=== PATIENT | male | born 1985 | race African-American/Black ===

== ENCOUNTER 2017-05-24 08:44 | Inpatient (IN) | payer OTHER ==
[2017-05-24 09:14] VITALS: BMI 33.7
--- NOTE | 2017-05-24 09:22 | PDOC ---
History of Present Illness - General Chief Complaint: Overdose Stated Complaint: OVERDOSE Time Seen by Provider: 05/24/17 08:54 History Source: Patient Exam Limitations: No Limitations - History of Present Illness Initial Comments: 05/24/17 09:01 The patient is a 31M with a PMH of asthma and "fluid in his lungs" who was BIBA after being found unresponsive in the passenger seat of a car. He was found to have pinpoint pupils, a BG of 161, was given 2mg of Narcan and became responsive. He said the last time this happened was February 08, 2017 and he was taken to [facility] He denies any fever, chills, CP, SOB, nausea, vomiting. Past History - Past Medical History Allergies/Adverse Reactions: Allergies Allergy/AdvReac Type Severity Reaction Status Date / Time No Known Allergies Allergy Verified 05/24/17 08:57 Home Medications: Ambulatory Orders NK [No Known Home Medication] 05/24/17 Review of Systems - Review of Systems Able to Perform ROS?: Yes Is the patient limited Sinhala proficient: No Constitutional: No: Chills, Fever HEENTM: No: Blurred Vision, Recent change in vision Respiratory: Yes: Cough. No: Shortness of Breath Cardiac (ROS): No: Chest Pain, Palpitations ABD/GI: No: Nausea, Vomiting Neurological: No: Headache, Numbness, Tingling, Weakness *Physical Exam - Physical Exam Comments: 05/24/17 09:45 GENERAL: Well developed, well nourished. Awake and alert. Diaphoretic, in mild distress. HEENT: Normocephalic, atraumatic. Hearing grossly normal. Moist mucous membranes. PERRLA, EOMI. No conjunctival pallor. Sclera are non-icteric. Oropharynx is clear. CARDIOVASCULAR: Regular rate and rhythm. No murmurs, rubs, or gallops. Distal pulses are 2+ and symmetric. PULMONARY: No evidence of respiratory distress. Lungs have crackles in b/l lung singh. No wheezing, rales or rhonchi. ABDOMINAL: Soft. Non-tender. Non-distended. No rebound or guarding. No organomegaly. Normoactive bowel sounds. GENITOURINARY: No CVA tenderness bilaterally. MUSCULOSKELETAL: Normal range of motion at all joints. No bony deformities or tenderness. EXTREMITIES: No cyanosis. No clubbing. No edema. No calf tenderness. SKIN: Warm and dry. Normal capillary refill. No rashes. No jaundice. NEUROLOGICAL: Alert, awake, appropriate. Cranial nerves 2-12 intact. No motor deficits in the in face, upper extremities and lower extremities. Toes are down- going bilaterally. Normal speech. Gait is unobserved. PSYCHIATRIC: Cooperative. Good eye contact. Appropriate mood and affect. Heart Score/ECG Review #1 General ECG Interpretation: Sinus Rhythm, Normal Rate, Normal Intervals, No acute ischemic changes 05/24/17 10:11 Questionable RBBB in V1 and V2 T wave inversions in V4 and V5 Rate 87 QRS 92 QTc 428 ED Treatment Course - LABORATORY CBC & Chemistry Diagram: 05/25/17 06:00 05/24/17 09:15 - RADIOLOGY Radiology Studies Ordered: Category Date Time Status CHEST X-RAY PORTABLE* [RAD] Stat Radiology 05/24/17 08:58 Ordered Medical Decision Making - Medical Decision Making 05/24/17 09:23 The patient is a 31M with a PMH of asthma, heroine and crack abuse who presented after being found unresponsive and given narcan. He coughed up blood while in the room and his O2 sat increased to 100. He then began to de-sat to mid-80's again. He will be put on high flow O2. Pending labs and imaging. Will reassess when labs/imaging return. 05/24/17 10:06 Labs WNL. ODALIS with Cr of 1.4. ABG shows mild hypoxemia. CXR read: No pneumothorax, or pleural effusion seen. Accentuated pulmonary vasculature. There is suggestion of the right-sided Raul's B lines. Pulmonary consolidation with air bronchograms is noted in the medial aspect of the left upper lung zone at the level of aortic arch, superior to the left hilum concerning for pneumonia, or pulmonary edema. 05/24/17 10:33 Patient is satting well on 50L/min high flow NC on 40% FiO2. Admitted to ICU. *DC/Admit/Observation/Transfer Diagnosis at time of Disposition: Heroin overdose Qualifiers: Encounter type: initial encounter Injury intent: accidental or unintentional Qualified Code(s): T40.1X1A - Poisoning by heroin, accidental (unintentional), initial encounter - Discharge Dispostion Condition at time of disposition: Stable Admit: Yes - Referrals - Patient Instructions - Post Discharge Activity
[2017-05-24 09:27] LABS: BASO % 0.4 % (0-2.0); EOS % 1.2 % (0-4.5); HEMATOCRIT 46.6 % (35.4-49); HEMOGLOBIN 14.9 GM/dL (11.7-16.9); LYMPH % 23.2 % (8-40); MCH 27.8 pg (25.7-33.7); MEAN CELL VOLUME 86.8 fl (80-96); MONO % 5.7 % (3.8-10.2); NEUT % 69.5 % (42.8-82.8); PLATELET COUNT 253 K/MM3 (134-434); RBC 5.37 M/mm3 (4.00-5.60); RDW 13.2 % (11.9-15.9)
[2017-05-24 09:42] LABS: ARTERIAL BLD GAS O2 SATURATION 88.4 % (90-98.9); ARTERIAL BLOOD GAS BASE EXCESS -2.9 meq/l (-2-2); ARTERIAL BLOOD GAS PCO2 44.6 mmHg (35-45); ARTERIAL BLOOD GAS PO2 62.4 mmHg (80-100); ARTERIAL BLOOD GAS pH 7.33 (7.35-7.45)
[2017-05-24 09:45] LABS: ALLENS TEST POSITIVE
--- NOTE | 2017-05-24 09:45 | PDOC ---
Attending Attestation - Resident Resident Name: LamroberdeionGa - ED Attending Attestation I have performed the following: I have examined & evaluated the patient, The case was reviewed & discussed with the resident, I agree w/resident's findings & plan, Exceptions are as noted - HPI HPI: 05/24/17 09:38 31-year-old male with history of polysubstance abuse and hospitalizations in the past last episode February with respiratory complications after opiates presents now brought in by EMS after found unresponsive with RR 8 after inhaling heroine this morning. Patient was given Narcan in the field with improved respiratory rate and alertness. No injuries, patient feels subjective shortness of breath with fluid in his lungs but better than he felt in February. - Physicial Exam PE: 05/24/17 09:39 Respiratory rate improved, O2 sat ranges from 84-100% on nonrebreather Patient is alert, speaking full sentences, cooperative. Occasional gross hemoptysis. Bilateral crackles at the bases No trauma - Critical Care Time Total Critical Care Time: 70 Critical Care Statement: The care of this patient involved high complexity decision making to prevent further life threatening deterioration of the patient 's condition and/or to evaluate & treat vital organ system(s) failure or risk of failure. - Medical Decision Making 05/24/17 09:40 Patient seen and evaluated with the resident. I agree with the overall evaluation, assessment, and management with the following summary of visit: 31-year-old male presents with acute hypoxic respiratory distress following opiate inhalation and Narcan resuscitation. Active hemoptysis concerning for acute lung injury. NRB with only slightly improved O2. Placed on high flow O2 with improved sats to 90s, able to expectorate still with gross hemoptysis, no clots labs, cxr, ekg will need ct chest if can tolerate additional narcan as needed admission, likely ICU. 05/24/17 10:55 Pt markedly improved on high flow, O2 95%, remains alert with normal RR. ABG noted. Labs wnl, no leukocytosis. Cr 1.4, unknown baseline. CXR with consolidation but given clinical picture, more consistent with fluid than infection. Awaiting CT chest then ICU admission. Heart Score/ECG Review #1 ECG reviewed & interpreted by me at: 08:55 General ECG Interpretation: Sinus Rhythm, Normal Rate (87), Normal Intervals, No acute ischemic changes (R V1V2, ? R heart strain. inferior and lateral TWI, no acute ST changes)
[2017-05-24 09:46] LABS: ALBUMIN 3.5 g/dl (3.4-5.0); ANION GAP 10 (8-16); BLOOD UREA NITROGEN 17 mg/dL (7-18); CALCIUM 8.5 mg/dL (8.5-10.1); CHLORIDE 104 mmol/L (98-107); CO2 23 mmol/L (21-32); CREATININE 1.4 mg/dL (0.7-1.3); GLUCOSE,RANDOM 146 mg/dL (74-106); POTASSIUM 3.7 mmol/L (3.5-5.1); SGOT/AST 17 U/L (15-37); SGPT/ALT 29 U/L (12-78); SODIUM 137 mmol/L (136-145)
[2017-05-24 09:49] LABS: ALK PHOS 100 U/L (45-117); BILIRUBIN,TOTAL 0.4 mg/dL (0.2-1.0); TOT PROT 7.1 g/dl (6.4-8.2)
[2017-05-24 09:50] LABS: SALICYLATE < 4.0 mg/dl (0.0-30.0)
[2017-05-24 09:57] LABS: INR 0.97 (0.82-1.09)
[2017-05-24 10:00] LABS: ACTIVATED PTT 26.6 SECONDS (26.9-34.4)
[2017-05-24 10:20] LABS: ACETAMINOPHEN < 10 ug/ml (10.0-30.0)
--- NOTE | 2017-05-24 12:40 | HP ---
PCP: Pt doesn't remember the name. HISTORY OF PRESENT ILLNESS: Patient is a 31 year old male was found unresponsive in his friends car after he inhaled a bag heroine this morning. 911 was immediately called. EMS found his respiratory rate to be 8 and had pin point pupils. 2mg of Narcane was given. En route to the hospital, he regained his consciouness and then he started having hemoptysis. As per the patient, he woke up at 7 am this morning, inhaled a bag of heroine and was about to go to work with his friend and he felt very weak and later lost consciousness. He had a similar episode where he overdosed and was hospitalized at [facility] for 4 days. He also mentions he had hemoptysis and "fluids in the lungs" that admission. Patient also mentions that since few days, he has had runny nose, sore throat, subjective fever. However, he didn't take medication and was still working in a moving company. Bowel/Bladder habit normal. Sleep/Appetite prior to illness is normal. ER course was notable for: (1) Creatinine 1.4 (baseline unknown) (2) EKG: Non specific T wave abnormality in lead V4-V6 (3) High flow oxygen Recent Travel: None PAST MEDICAL HISTORY: Asthma (never been intubated) PAST SURGICAL HISTORY: unknown Social History: Smokin cig/day since age 11 years. Alcohol: 1 pint of alcohol since age 11 years. Drugs: Inhales Heroine and Cocaine. Denies IV drug use. Last intake of cocaine was last week. Family History: Non contributory Allergies No Known Allergies Allergy (Verified 05/24/17 08:57) HOME MEDICATIONS: Home Medications Medication Instructions Recorded NK [No Known Home Medication] 05/24/17 REVIEW OF SYSTEMS CONSTITUTIONAL: Present: generalized weakness Absent: fever, chills, diaphoresis, malaise, loss of appetite, weight change HEENT: Absent: rhinorrhea, nasal congestion, throat pain, throat swelling, difficulty swallowing, mouth swelling, ear pain, eye pain, visual changes CARDIOVASCULAR: Absent: chest pain, syncope, palpitations, irregular heart rate, lightheadedness , peripheral edema RESPIRATORY: Absent: cough, shortness of breath, dyspnea with exertion, orthopnea, wheezing, stridor, hemoptysis GASTROINTESTINAL: Absent: abdominal pain, abdominal distension, nausea, vomiting, diarrhea, constipation, melena, hematochezia GENITOURINARY: Absent: dysuria, frequency, urgency, hesitancy, hematuria, flank pain, genital pain MUSCULOSKELETAL: Absent: myalgia, arthralgia, joint swelling, back pain, neck pain SKIN: Absent: rash, itching, pallor HEMATOLOGIC/IMMUNOLOGIC: Absent: easy bleeding, easy bruising, lymphadenopathy, frequent infections ENDOCRINE: Absent: unexplained weight gain, unexplained weight loss, heat intolerance, cold intolerance NEUROLOGIC: Absent: headache, focal weakness or paresthesias, dizziness, unsteady gait, seizure, mental status changes, bladder or bowel incontinence PSYCHIATRIC: Absent: anxiety, depression, suicidal or homicidal ideation, hallucinations. PHYSICAL EXAMINATION Vital Signs - 24 hr 05/24/17 05/24/17 05/24/17 08:57 09:10 09:39 Temperature 98.0 F Pulse Rate 78 80 Pulse Rate [ 80 81 Left Apical] Respiratory 10 L 12 12 Rate Blood Pressure 91/56 Blood Pressure 108/67 106/62 [Right Arm] O2 Sat by Pulse 78 L 88 L 99 Oximetry (%) 05/24/17 05/24/17 05/24/17 09:45 10:15 10:45 Temperature Pulse Rate 89 Pulse Rate [ 90 83 Left Apical] Respiratory 10 L 14 Rate Blood Pressure Blood Pressure 112/71 109/61 [Right Arm] O2 Sat by Pulse 94 L 93 L 96 Oximetry (%) 05/24/17 11:33 Temperature Pulse Rate Pulse Rate [ Left Apical] Respiratory Rate Blood Pressure Blood Pressure [Right Arm] O2 Sat by Pulse 95 Oximetry (%) GENERAL: Patient is comfortably sitting in bed, Awake, alert, and fully oriented , in no acute distress. HEAD: Normal with no signs of trauma. EYES: Pin point pupils, non reacting to light. EARS, NOSE, THROAT: Ears normal. Dry mucous membranes +. Hemoptysis 3-4 Tablespoon full, bright red in color. NECK: Normal range of motion, supple without lymphadenopathy, JVD, or masses. LUNGS: B/L coarse breath sounds Left > Right, no wheeze. HEART: Regular rate and rhythm, normal S1 and S2 without murmur. ABDOMEN: Soft, nontender, not distended, normoactive bowel sounds, no guarding, no rebound, no masses. No hepatomegaly or splenomegaly. MUSCULOSKELETAL: Normal range of motion at all joints. No bony deformities or tenderness. No CVA tenderness. UPPER EXTREMITIES: 2+ pulses, warm, well-perfused. No cyanosis. No clubbing. No peripheral edema. LOWER EXTREMITIES: 2+ pulses, warm, well-perfused. No calf tenderness. No peripheral edema. NEUROLOGICAL: No facial droop, power 5/5 in all extremities, Cranial nerves II- XII intact. Normal speech. Gait not observed. Reflexes 2 + PSYCHIATRIC: Cooperative. Good eye contact. Appropriate mood and affect. SKIN: Warm, dry, normal turgor, no rashes or lesions noted, normal capillary refill. Laboratory Results - last 24 hr 05/24/17 05/24/17 05/24/17 09:10 09:10 09:15 WBC RBC Hgb Hct MCV MCH MCHC RDW Plt Count MPV Neutrophils % Lymphocytes % Monocytes % Eosinophils % Basophils % PT with INR 11.00 INR 0.97 PTT (Actin FS) 26.6 L Anticoagulation Therapy Puncture Site ABG pH ABG pCO2 at Pt Temp ABG pO2 at Pt Temp ABG HCO3 ABG O2 Sat (Measured) ABG O2 Content ABG Base Excess Santhosh Test O2 Delivery Device Oxygen Flow Rate Vent Mode Vent Rate Mechanical Rate Pressure Support Vent Sodium 137 Potassium 3.7 Chloride 104 Carbon Dioxide 23 Anion Gap 10 BUN 17 Creatinine 1.4 H Creat Clearance w eGFR 58.73 Random Glucose 146 H Calcium 8.5 Total Bilirubin 0.4 AST 17 ALT 29 Alkaline Phosphatase 100 Creatine Kinase 379 H Creatine Kinase Index 0.8 CK-MB (CK-2) 3.328 Troponin I < 0.02 Total Protein 7.1 Albumin 3.5 Salicylates Acetaminophen Blood Type O POSITIVE Antibody Screen Negative 05/24/17 05/24/17 05/24/17 09:15 09:20 09:39 WBC 6.0 RBC 5.37 Hgb 14.9 Hct 46.6 MCV 86.8 MCH 27.8 MCHC 32.0 RDW 13.2 Plt Count 253 MPV 9.0 Neutrophils % 69.5 Lymphocytes % 23.2 Monocytes % 5.7 Eosinophils % 1.2 Basophils % 0.4 PT with INR INR PTT (Actin FS) Anticoagulation Therapy Y Puncture Site Right radial ABG pH 7.33 L ABG pCO2 at Pt Temp 44.6 ABG pO2 at Pt Temp 62.4 L ABG HCO3 22.7 ABG O2 Sat (Measured) 88.4 L ABG O2 Content 18.8 ABG Base Excess -2.9 L Santhosh Test Positive O2 Delivery Device Y Oxygen Flow Rate Yes Vent Mode Y Vent Rate Y Mechanical Rate Y Pressure Support Vent Y Sodium Potassium Chloride Carbon Dioxide Anion Gap BUN Creatinine Creat Clearance w eGFR Random Glucose Calcium Total Bilirubin AST ALT Alkaline Phosphatase Creatine Kinase Creatine Kinase Index CK-MB (CK-2) Troponin I Total Protein Albumin Salicylates < 4.0 Acetaminophen < 10 L Blood Type Antibody Screen ASSESSMENT/PLAN: Patient is a 31 year old male with significant past medical history of illicit drug overdose, Asthma was found unresponsive in his friends car after he inhaled a bag heroine this morning. # Opiod overdose Inhaled a bag of heroine this morning, RR-8, pin point pupils on EMS arrival. 2mg of Narcan was given and he regained consciousness. High flow oxygen given in the ED. Admitted in the ICU Continous monitoring of vitals. Narcan to be given if needed Detox consult requested. # Acute Kidney Injury Creatinine 1.4 (baseline unknown) Likely due to drug induced Will try to get records from [facility] to get his baseline creatinine. # Acute hypoxic respiratory failure likely secondary to opiod induced lung injury Pt has been having upper respiratory tract infection since few days + Coarse breath sounds on auscultation+ but doesn't have fever Will hold off antibiotics at this time. Will wait for CT chest report and start antibiotics if needed. Flu swab ordered # Hemoptysis likely secondary to illicit drug use Awaiting CT chest report. # Asthma likely in exacerbation Continue Oxygen Nebs PRN # FEN IV NS @ 100mls/hr Electrolytes to be repeated in am. NPO # Prophylaxis For DVT: On Scds For GI: Not indicated # Code Status: Full Code Illness, Investigation and plan of care explained to the patient. He verbalized understanding. Case discussed with Dr. Vines and ICU residents. Visit type - Emergency Visit Emergency Visit: Yes ED Registration Date: 05/24/17 Care time: The patient presented to the Emergency Department on the above date and was hospitalized for further evaluation of their emergent condition. - New Patient This patient is new to me today: Yes Date on this admission: 05/24/17 - Critical Care Critical Care patient: No
[2017-05-24] MEDS: SODIUM CHLORIDE 1,000 ML IV SCH ×2 (13:42→22:16)
--- NOTE | 2017-05-24 13:43 | PN ---
Teaching Attending Note Name of Resident: Luciana Brooks ATTENDING PHYSICIAN STATEMENT I saw and evaluated the patient. I reviewed the resident's note and discussed the case with the resident. I agree with the resident's findings and plan as documented. SUBJECTIVE: This is a 31 year old man with a history of asthma and substance abuse who was found unresponsive this morning. He was found to have a respiratory rate of 8. He was treated with Narcan by EMS and improved. He admits to inhaling heroin prior to this episode. OBJECTIVE: Vital Signs Period Temp Pulse Resp BP Sys/Pascal Pulse Ox Last 24 Hr 98.0 F 78-90 10-14 91-112/56-71 78-99 HEART: S1S2, RRR LUNGS: Bilateral crackles ABDOMEN: Soft, non-tender, non-distended, normal BS EXTREMITIES: No edema Laboratory Tests 05/24/17 05/24/17 05/24/17 09:10 09:10 09:15 WBC RBC Hgb Hct MCV MCH MCHC RDW Plt Count MPV Neutrophils % Lymphocytes % Monocytes % Eosinophils % Basophils % PT with INR 11.00 INR 0.97 PTT (Actin FS) 26.6 L Anticoagulation Therapy Puncture Site ABG pH ABG pCO2 at Pt Temp ABG pO2 at Pt Temp ABG HCO3 ABG O2 Sat (Measured) ABG O2 Content ABG Base Excess Santhosh Test O2 Delivery Device Oxygen Flow Rate Vent Mode Vent Rate Mechanical Rate Pressure Support Vent Sodium 137 Potassium 3.7 Chloride 104 Carbon Dioxide 23 Anion Gap 10 BUN 17 Creatinine 1.4 H Creat Clearance w eGFR 58.73 Random Glucose 146 H Calcium 8.5 Total Bilirubin 0.4 AST 17 ALT 29 Alkaline Phosphatase 100 Creatine Kinase 379 H Creatine Kinase Index 0.8 CK-MB (CK-2) 3.328 Troponin I < 0.02 Total Protein 7.1 Albumin 3.5 Salicylates Acetaminophen Blood Type O POSITIVE Antibody Screen Negative 05/24/17 05/24/17 05/24/17 09:15 09:20 09:39 WBC 6.0 RBC 5.37 Hgb 14.9 Hct 46.6 MCV 86.8 MCH 27.8 MCHC 32.0 RDW 13.2 Plt Count 253 MPV 9.0 Neutrophils % 69.5 Lymphocytes % 23.2 Monocytes % 5.7 Eosinophils % 1.2 Basophils % 0.4 PT with INR INR PTT (Actin FS) Anticoagulation Therapy Y Puncture Site Right radial ABG pH 7.33 L ABG pCO2 at Pt Temp 44.6 ABG pO2 at Pt Temp 62.4 L ABG HCO3 22.7 ABG O2 Sat (Measured) 88.4 L ABG O2 Content 18.8 ABG Base Excess -2.9 L Santhosh Test Positive O2 Delivery Device Y Oxygen Flow Rate Yes Vent Mode Y Vent Rate Y Mechanical Rate Y Pressure Support Vent Y Sodium Potassium Chloride Carbon Dioxide Anion Gap BUN Creatinine Creat Clearance w eGFR Random Glucose Calcium Total Bilirubin AST ALT Alkaline Phosphatase Creatine Kinase Creatine Kinase Index CK-MB (CK-2) Troponin I Total Protein Albumin Salicylates < 4.0 Acetaminophen < 10 L Blood Type Antibody Screen Home Medications Medication Instructions Recorded NK [No Known Home Medication] 05/24/17 ASSESSMENT AND PLAN: This is a 31 year old man with a history of asthma and substance abuse who was found unresponsive this morning after inhaling heroin. 1. Acute hypoxic respiratory failure and hemoptysis secondary to heroin inhalation induced lung injury - Admit to ICU - Oxygen to maintain saturation >90% - Follow up chest CT 2. Asthma - Albuterol nebs as needed 3. Substance abuse - Detox consult
[2017-05-24 14:36] LABS: METHADONE, UR NEGATIVE ng/ml (CUTOFF=300); PHENCYCLIDINE,URINE NEGATIVE ng/ml (CUTOFF=25); URINE AMPHETAMINES NEGATIVE ng/ml (CUTOFF=500); URINE BARBITURATES NEGATIVE ng/ml (CUTOFF=200); URINE BENZODIAZEPINES NEGATIVE ng/ml (CUTOFF=200)
[2017-05-24 14:37] LABS: COCAINE, UR POSITIVE ng/ml (CUTOFF=300); OPIATES, URI POSITIVE ng/ml (CUTOFF=300)
--- NOTE | 2017-05-24 21:41 | CONSULT ---
Consult Consult Specialty:: Pulmonary Critical Care Reason for Consultation:: Respiratory distress - History of Present Illness Chief Complaint: SOB History of Present Illness: Pt is a 31 yo male with h/o PSA (inh cocaine, heroin) who was found unresponsive this morning after inhaling a bag of heroin. Was found to have RR of 8, given narcan in the field with improvement in his RR and consciousness. In ER started having hemoptysis. Has had similar episode before in the setting of overdose when he was hospitalized with hemoptysis and "fluids in his lungs". Inital labs notable for WBC of 6, Cr 1.4, ABG 7.33/45/62 (unclear O2), utox positive for cocaine/opiates/THC. CT chest with diffuse bilateral alveolar opacities, no dense infiltrates. Pt was initially placed on NRB, then onto HFNC. Now transferreed to ICU for further management. Upon exam pt awake, in no distress, states no more hemoptysis. Reports that he has been sick past week ( sore throat, cough), but didnt see a doctor or take any medications. Active Medications Chlorhexidine Gluconate (Hibiclens For Decolonization -) 1 applic TP HS RICHARD Sodium Chloride (Normal Saline -) 1,000 mls @ 100 mls/hr IV ASDIR RICHARD Last Admin: 05/24/17 13:42 Dose: 100 mls/hr Mupirocin (Bactroban Ointment (For Decolonization) -) 1 applic NS BID RICHARD Stop: 05/29/17 21:59 - Alcohol/Substance Use Hx Alcohol Use: Yes - Smoking History Smoking history: Current every day smoker Have you smoked in the past 12 months: Yes Aproximately how many cigarettes per day: 6 Home Medications - Allergies Allergies/Adverse Reactions: Allergies Allergy/AdvReac Type Severity Reaction Status Date / Time No Known Allergies Allergy Verified 05/24/17 08:57 - Home Medications Home Medications: Ambulatory Orders NK [No Known Home Medication] 05/24/17 Physical Exam Vital Signs: Vital Signs Temperature 98.7 F 05/24/17 18:37 Pulse Rate 77 05/24/17 18:37 Respiratory Rate 17 05/24/17 18:37 Blood Pressure 123/77 05/24/17 18:37 O2 Sat by Pulse Oximetry (%) 95 05/24/17 19:30 Constitutional: Yes: Well Nourished Eyes: Yes: WNL Cardiovascular: Yes: Regular Rate and Rhythm Respiratory: Yes: CTA Bilaterally Gastrointestinal: Yes: WNL Extremities: Yes: WNL Edema: No Neurological: Yes: WNL Labs: CBC, BMP 05/24/17 09:20 05/24/17 09:15 Imaging - Results X-ray: Image Reviewed Cat Scan: Image Reviewed Problem List - Problems (1) Heroin overdose Code(s): T40.1X1A - POISONING BY HEROIN, ACCIDENTAL (UNINTENTIONAL), INIT ENCNTR Qualifiers: Encounter type: initial encounter Injury intent: accidental or unintentional Qualified Code(s): T40.1X1A - Poisoning by heroin, accidental ( unintentional), initial encounter Assessment/Plan Heroin overdose Respiratory insufficiency in the setting of overdose Hemoptysis -HFNC --> wean off as tolerated -f/u sputum -f/u respiratory swab -no abx at this time (CT findings more c/w hemorrhage and/or fluid overload as opposed to infection) -detox consult -LUIS Dow Critical Care time: 35 min
[2017-05-24] MEDS ORDERED: CHLORHEXIDINE GLUCONATE 4% CLEANSER FOR DECOLONIZATION TP SCH (22:00)
[2017-05-24] MEDS: MUPIROCIN 2% TOPICAL OINTMENT FOR DECOLONIZATION NS SCH (22:16)
--- NOTE | 2017-05-25 07:16 | PN ---
Physical Exam: SUBJECTIVE: Patient seen and examined. States feels much better. No sob, CP, chest tightness, abdominal pain, fever, chills, or n/v. Voiding and eating well. OBJECTIVE: Vital Signs Period Temp Pulse Resp BP Sys/Pascal Pulse Ox Last 24 Hr 98 F-98.7 F 76-90 10-21 91-130/52-81 78-100 GENERAL: lying comfortably in bed, nad, aaox3 EYES: PERRLA, EOMI, conjunctiva clear ENT: oropharynx clear without exudates, mmm LUNGS: CTAB, no wheezes, crackles, rhonchi HEART: rrr, normal S1/S2, no JVD, no m/r/g ABDOMEN: Soft, ntnd, normoactive BS LOWER EXTREMITIES: 2+ DP, wwp, b/l trace edema NEUROLOGICAL: CN II-XII intact. Normal speech. Sensation intact. Motor strength 5/5 in all 4 extremities CBC, BMP 05/25/17 06:00 05/25/17 05:50 Hepatic Panel Total Bilirubin 0.4 mg/dL (0.2-1.0) 05/24/17 09:15 AST 17 U/L (15-37) 05/24/17 09:15 ALT 29 U/L (12-78) 05/24/17 09:15 Alkaline Phosphatase 100 U/L (45-117) 05/24/17 09:15 Albumin 3.5 g/dl (3.4-5.0) 05/24/17 09:15 Troponin, BNP 05/25/17 15:00 Troponin I < 0.02 Microbiology 05/24/17 18:00 Nasopharyngeal Swab Influenza Types A,B Antigen (GUALBERTO) - NEG EKG: Active Medications Chlorhexidine Gluconate (Hibiclens For Decolonization -) 1 applic TP HS RICHARD Last Admin: 05/24/17 22:17 Dose: 1 applic Sodium Chloride (Normal Saline -) 1,000 mls @ 100 mls/hr IV ASDIR RICHARD Last Admin: 05/24/17 22:16 Dose: 100 mls/hr Mupirocin (Bactroban Ointment (For Decolonization) -) 1 applic NS BID RICHARD Stop: 05/29/17 21:59 Last Admin: 05/24/17 22:16 Dose: 1 applic ASSESSMENT/PLAN: 31yo man with PMH of asmtha, polysubstance abuse who was found unresponsive with RR of 8 after heroine overdose, and now with improved mental status s/p narcan. #acute hypoxic respiratory failure, likely pulmomary edema from inhaled heroine/ crack, CT findings of b/l alveolar opacities c/w vasogenic edema -Wean O2 therapy as tolerated -r/o cardiogenic etiology given cocaine use (see below) #h/o Cocaine abuse -ECHO to assess heart function -2x Troponins negative, will stop trending -Serial EKGs to evaluate ? RUSSELL in anterior leads #Heroine/EtOH detox -Dr. Hammer consulted, received Suboloxone -Ativan 1mg Q4H PRN for EtOH withdrawal symptoms #FEN: No IVFs/ lytes wnl / Na controlled diet #DVT PPX - Heparin TID #DISPO: patient declining in-pt detox, agreeing to OP program. Anticipate d/c in next 24hours. FULL code d/w Dr. Rossi Akhtar MD PGY1 - Internal Medicine Visit type - Emergency Visit Emergency Visit: No - New Patient This patient is new to me today: Yes Date on this admission: 05/25/17 - Critical Care Critical Care patient: No
[2017-05-25 07:18] LABS: BASO % 0.2 % (0-2.0); HEMATOCRIT 41.1 % (35.4-49); HEMOGLOBIN 13.1 GM/dL (11.7-16.9); MCH 27.5 pg (25.7-33.7); MCHC 31.9 g/dl (32.0-35.9); MEAN CELL VOLUME 86.2 fl (80-96); MEAN PLT VOLUME 9.2 fl (7.5-11.1); MONO % 5.5 % (3.8-10.2); NEUT % 74.3 % (42.8-82.8); PLATELET COUNT 233 K/MM3 (134-434); RBC 4.77 M/mm3 (4.00-5.60); RDW 13.1 % (11.9-15.9); WHITE BLOOD COUNT 12.4 K/mm3 (4.0-10.0)
[2017-05-25] MEDS ORDERED: NICOTINE POLACRILEX 2 MG GUM BUC PRN ×2 (10:59→14:44)
--- NOTE | 2017-05-25 11:00 | CONSULT ---
Consult Detox [facility] Reason for Current Admission/Consult: heorin overdose, poysubstance use Referred by:: adalgisa najera MD - History History of Present Illness: 31 y m with h/o opipid use disorder, od in pat, crack cocaine and marijuana dependence brought to ED after heroin OD. was revived with Narcan yesterday, at that time he had hemoptysis and abnormal CXR and was amitted to ICU for monitoring. Patient now reports craving, desire to use, drug dreams, sweats and body aches, anxiety and chills as he develops withdrawl sx. 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 - History Source History Provided By: Patient, Medical Record, Caregiver Limitations to Obtaining History: No Limitations - Alcohol/Substance Use Hx Alcohol Use: Yes (social) Hx Substance Use: No Hx Substance Use Treatment: No - Current Drug/Alcohol Use Crack Route: Smoking Frequency: 3-6 times per week Amount used: $200 Age of first use: 27 Date of Last Use: 05/19/17 Heroin Route: Inhalation Frequency: Daily Amount used: 1-2 bags Age of first use: 26 Date of Last Use: 05/24/17 Marijuana/Hashish Route: Smoking Frequency: Daily Amount used: $50 Age of first use: 12 Date of Last Use: 05/24/17 - Significant Medical Findings: 31 yo m s/p heori overdose with abnormal cxr/CT scan chest findings and hemaotysis admitted to ICU for observation, may be 2/2 pulmonary edema from od, is being worked up exhibitaing signs of withdrwal from heroin. medically stable no SOB, no sedation and and ox3 COWS - Scale Resting Pulse: 1= IL 81-100 Sweatin= Chills/Flushing Restless Observation: 0= Sits Still Pupil Size: 0= Normal to Room Light Bone or Joint Aches: 1= Mild Discomfort Runny Nose/ Eye Tearin= None GI Upset > 30mins: 0= None Tremor Observation: 0= None Yawning Observation: 0= None Anxiety or Irritability: 1=Feels Anxious/Irritable Goose Flesh Skin: 0=Smooth Skin COWS Score: 4 Assessment Plan - Diagnosis (1) Cocaine dependence Status: Acute (2) Hemoptysis Status: Acute (3) Heroin overdose Status: Acute Qualifiers: Encounter type: initial encounter Injury intent: accidental or unintentional Qualified Code(s): T40.1X1A - Poisoning by heroin, accidental ( unintentional), initial encounter (4) Marijuana dependence Status: Acute (5) Opioid dependence with withdrawal Status: Acute - Plan Plan: Chrt reviewed, labs reveiwed, imaging reviewd, patient examined, histroy taken, dicussed care with medical providers. Pateint lives locally and is requesting suboxone induction andmaintenance treatment. will follow up when dischargged at [facility]. started on suboxone 2mg x1 dose today if tolerated cacn give 4mg daily and adjust dose until patient is comfortable and does not have cravings or drug dreams. nicotine patchand gum ordered as per patient request. Order placed for to obtain appt within 7 dasy of discharge for suboxone follow up and treamtent. I will give a prescription for 7 days of medition when patient is discharged once we know what dose is needed to keeep himcofotable. will follow. Thanks for this consult. risks and benefits of suboxone discussed with patient who has used it illicitly in the past. Will follow. Abdullahi Hammer MD [phone] - Medication Detox Regimen/Protocol: Suboxone, Not Applicable
[2017-05-25 11:06] LABS: ANION GAP 8 (8-16); BLOOD UREA NITROGEN 15 mg/dL (7-18); CALCIUM 8.4 mg/dL (8.5-10.1); CHLORIDE 105 mmol/L (98-107); CO2 27 mmol/L (21-32); CREATININE 1.1 mg/dL (0.7-1.3); GLUCOSE,RANDOM 82 mg/dL (74-106); POTASSIUM 4.2 mmol/L (3.5-5.1); SODIUM 140 mmol/L (136-145)
[2017-05-25] MEDS ORDERED: NICOTINE 14 MG/24 HOURS TOPICAL PATCH TD SCH (12:00)
[2017-05-25] MEDS ORDERED: PRENATAL VITAMINS W/ FOLIC ACID TABLET (FP) PO SCH (12:00)
[2017-05-25] MEDS ORDERED: ALBUTEROL SO4 2.5/IPRATROPIUM 0.5 INH SOL 3 ML VIAL.NEB. NEB ONE (12:50)
[2017-05-25] MEDS ORDERED: ALBUTEROL SO4 0.083% IH SOL 2.5 MG/3 ML VIAL.NEB. NEB PRN (13:01)
--- NOTE | 2017-05-25 13:44 | PN ---
Teaching Attending Note Name of Resident: Thomas Granados ATTENDING PHYSICIAN STATEMENT I saw and evaluated the patient. I reviewed the resident's note and discussed the case with the resident. I agree with the resident's findings and plan as documented. SUBJECTIVE: Pt seen and examined in the ICU. No further hemoptysis. Oxygen saturations improved. States breathing is improving. Placed on ventimask. No chest pain. OBJECTIVE: Last Vital Signs Temp Pulse Resp BP Pulse Ox 98 F 74 18 126/79 100 05/25/17 10:00 05/25/17 12:00 05/25/17 12:00 05/25/17 12:00 05/25/17 10:00 Intake & Output 05/22/17 05/23/17 05/24/17 05/25/17 23:59 23:59 23:59 23:59 Intake Total 750 1413 Output Total 1450 Balance 750 -37 Weight 270 lb 0.002 oz 273 lb 3 oz Gen: NAD at rest Heart: RRR Lung: scattered rhonchi, wheezes Abd: soft, nontender Ext: no edema CBC, BMP 05/25/17 06:00 05/25/17 05:50 Active Medications Albuterol Sulfate (Ventolin 0.083% Nebulizer Soln -) 1 amp NEB Q4H PRN PRN Reason: SHORT OF BREATH/WHEEZING Buprenorphine/Naloxone (Suboxone 2mg/0.5mg Sl Film -) 1 each SL ONCE ONE Stop: 05/25/17 14:01 Buprenorphine/Naloxone (Suboxone 2mg/0.5mg Sl Film -) 2 each SL DAILY [facility] Chlorhexidine Gluconate (Hibiclens For Decolonization -) 1 applic TP HS RICHARD Last Admin: 05/24/17 22:17 Dose: 1 applic Mupirocin (Bactroban Ointment (For Decolonization) -) 1 applic NS BID RICHARD Stop: 05/29/17 21:59 Last Admin: 05/24/17 22:16 Dose: 1 applic Nicotine (Nicoderm Patch -) 14 mg TD DAILY [facility] Nicotine Polacrilex (Nicorette Gum -) 2 mg BUC Q2H PRN PRN Reason: NICOTINE REPLACEMENT RX Multivit/Folic Acid/Iron ( Vitamins (Sjr) -) 1 tab PO DAILY [facility] Thiamine HCl (Vitamin B1 -) 100 mg PO HS [facility] ASSESSMENT AND PLAN: Heroin Overdose Polysubstance Abuse Acute Hypoxic Respiratory Failure Hemoptysis - monitor hemoptysis - taper FiO2 to keep SpO2 >90% - detox per addiction medicine - CT findings likely due to inhalation exposure, will need outpt f/u to ensure resolution - DVT prophylaxis - can monitor on floor
[2017-05-25] MEDS: MUPIROCIN 2% TOPICAL OINTMENT FOR DECOLONIZATION NS SCH ×2 (13:47→21:51)
[2017-05-25] MEDS ORDERED: BUPRENORPHINE/NALOXONE 2 MG/0.5 MG FILM PACKET SL ONE (14:00)
--- NOTE | 2017-05-25 14:25 | PN ---
Physical Exam: SUBJECTIVE: Patient seen and examined No acute events overnight. Patient denies further hemoptysis. Patient's breathing has improved. Patient currently on ventimask off of HFNC. OBJECTIVE: Vital Signs Period Temp Pulse Resp BP Sys/Pascal Pulse Ox Last 24 Hr 98 F-98.7 F 74-84 17-21 103-130/52-79 94-100 GENERAL: The patient is awake, alert, and fully oriented, in no acute distress. HEAD: Normal with no signs of trauma. EYES: PERRL, extraocular movements intact, sclera anicteric, conjunctiva clear. No ptosis. ENT:Oropharynx clear without exudates, moist mucous membranes. NECK: Trachea midline, full range of motion, supple. LUNGS: Breath sounds equal, clear to auscultation bilaterally, mild wheezing HEART: Regular rate and rhythm, S1, S2 without murmur, rub or gallop. ABDOMEN: Soft, nontender, nondistended, normoactive bowel sounds, no guarding, no rebound, no hepatosplenomegaly, no masses. EXTREMITIES: 2+ pulses, warm, well-perfused, no edema. NEUROLOGICAL: Cranial nerves II through XII grossly intact. Normal speech, gait not observed. PSYCH: Normal mood, normal affect. SKIN: Warm, dry, normal turgor, no rashes or lesions noted Laboratory Results - last 24 hr 05/24/17 05/25/17 05/25/17 09:10 05:50 06:00 WBC 12.4 H D RBC 4.77 Hgb 13.1 D Hct 41.1 MCV 86.2 MCH 27.5 MCHC 31.9 L RDW 13.1 Plt Count 233 MPV 9.2 Neutrophils % 74.3 Lymphocytes % 19.0 Monocytes % 5.5 Eosinophils % 1.0 Basophils % 0.2 Sodium 140 Potassium 4.2 Chloride 105 Carbon Dioxide 27 Anion Gap 8 BUN 15 Creatinine 1.1 D Random Glucose 82 D Calcium 8.4 L Opiates Screen Positive Methadone Screen Negative Barbiturate Screen Negative Phencyclidine Screen Negative Ur Amphetamines Screen Negative MDMA (Ecstasy) Screen Negative Benzodiazepines Screen Negative Cocaine Screen Positive U Marijuana (THC) Screen Positive Active Medications Generic Name Dose Route Start Last Admin Trade Name Freq PRN Reason Stop Dose Admin Albuterol Sulfate 1 amp 05/25/17 13:01 Ventolin 0.083% Nebulizer Soln - NEB Q4H PRN SHORT OF BREATH/WHEEZING Buprenorphine/Naloxone 2 each 05/26/17 10:00 Suboxone 2mg/0.5mg Sl Film - SL DAILY RICHARD Chlorhexidine Gluconate 1 applic 05/24/17 22:00 05/24/17 22:17 Hibiclens For Decolonization - TP 1 applic HS RICHARD Administration Mupirocin 1 applic 05/24/17 22:00 05/25/17 13:47 Bactroban Ointment (For Decolonization) - NS 05/29/17 21:59 1 applic BID RICHARD Administration Nicotine 14 mg 05/25/17 12:00 05/25/17 13:49 Nicoderm Patch - TD 14 mg DAILY RICHARD Administration Nicotine Polacrilex 2 mg 05/25/17 10:59 Nicorette Gum - BUC Q2H PRN NICOTINE REPLACEMENT RX Multivit/Folic Acid/Iron 1 tab 05/25/17 12:00 05/25/17 13:47 Vitamins (Sjr) - PO 1 tab DAILY RICHARD Administration Thiamine HCl 100 mg 05/25/17 22:00 Vitamin B1 - PO HS RICHARD ASSESSMENT/PLAN: 31 year old M with pmh of polysubstance abuse admitted for unresponsiveness after heroin inhalation Psych Heroin overdose ETOH abuse -Detox consult -Will likely need librium/methadone to prevent withdrawals -Patient consented to HIV test Resp Acute Hypoxic Respiratory Failure -Currently on venti mask, off HFNC -Monitor respiratory status, wean off O2 as tolerated -Duonebs for wheezing Nephro ODALIS likely 2/2 to dehydration -IVF stopped -continue to monitor Cr -Avoid nephrotoxic medications FEN/GI -No fluids -wnl -Low sodium diet PPx -Heparin 5000 u q8h for dvt ppx -No GI ppx indicated at this time Visit type - Emergency Visit Emergency Visit: Yes ED Registration Date: 05/24/17 Care time: The patient presented to the Emergency Department on the above date and was hospitalized for further evaluation of their emergent condition. - New Patient This patient is new to me today: Yes Date on this admission: 05/25/17 - Critical Care Critical Care patient: Yes Total Critical Care Time (in minutes): 35 Critical Care Statement: The care of this patient involved high complexity decision making to prevent further life threatening deterioration of the patient 's condition and/or to evaluate & treat vital organ system(s) failure or risk of failure.
[2017-05-25] MEDS ORDERED: FLU VACCINE QUAD 60 MCG/0.5 ML (MDV 17-18) IM ONE (15:00)
--- NOTE | 2017-05-25 15:07 | PN ---
Teaching Attending Note Name of Resident: Sara Akhtar ATTENDING PHYSICIAN STATEMENT I saw and evaluated the patient. I reviewed the resident's note and discussed the case with the resident. I agree with the resident's findings and plan as documented. SUBJECTIVE: denies SOB. has no CP . OBJECTIVE: NAD, round equal pupils , reactive to light AAox3 Cv: RRR Lungs: CTAB ext : no edema . no tremor ABd: soft, NT, ND , NL BS ASSESSMENT AND PLAN: 31 y/o man with h/o polysubstance abuse who was brought with unresponsiveness after heroin inhalation 1- Heroin over dose : now awake and asymptomatic . will need detox with methadone , will start probably tonight 2- Acute hypoxic resp failure: with finding suggestive of acute lung injury ( vagogenic edema form heroin inhalation ) unlikely pulmonary hemorrhage. unlikley heart failure tapered off high flow oxygen. monitor echo EKG with TWI in lateral leads, not clear if new or old. repeat EKG and trop , given his cocaine use 3- ODALIS: likely due to volume depletion. reolved after IVF . stop IVf and encourage po hydraiton 4- ETOH abuse: no signs of withdrawal , but expect him to develop - if his mental status cont to be ok , will start librium protocol tonight . 5- Not interested in rehab for alcohol or drugs start DVT px
[2017-05-25] MEDS ORDERED: LORazepam 2 MG/ML SDV VIAL IVPUSH PRN (18:27)
--- NOTE | 2017-05-25 21:27 | EKG ---
Test Reason : Blood Pressure : / mmHG Vent. Rate : 069 BPM Atrial Rate : 069 BPM P-R Int : 162 ms QRS Dur : 090 ms QT Int : 400 ms P-R-T Axes : 030 044 059 degrees QTc Int : 428 ms NORMAL SINUS RHYTHM MINIMAL VOLTAGE CRITERIA FOR LVH, MAY BE NORMAL VARIANT ST ELEVATION, CONSIDER EARLY REPOLARIZATION, PERICARDITIS, OR INJURY NONSPECIFIC ST AND T WAVE ABNORMALITY ABNORMAL ECG WHEN COMPARED WITH ECG OF 24-MAY-2017 08:55, ST MORE ELEVATED IN ANTERIOR LEADS T WAVE INVERSION NO LONGER EVIDENT IN LATERAL LEADS Confirmed by MD RASHAD, JOHN ([id number]) on 05/25/2017 9:27:04 PM Referred By: PRIMITIVO TURNER DR Confirmed By:JOHN SOLORZNAO MD
[2017-05-25] MEDS ORDERED: THIAMINE HCL 100 MG TABLET (FP) PO SCH ×2 (22:00)
[2017-05-25] MEDS: HEPARIN NA (PORCINE) 5,000 UNITS/ML 1ML VIAL SQ SCH (22:05)
[2017-05-26] MEDS: HEPARIN NA (PORCINE) 5,000 UNITS/ML 1ML VIAL SQ SCH ×2 (06:37→13:43)
[2017-05-26 07:42] LABS: BASO % 0.6 % (0-2.0); EOS % 1.9 % (0-4.5); HEMATOCRIT 39.6 % (35.4-49); HEMOGLOBIN 12.9 GM/dL (11.7-16.9); LYMPH % 20.9 % (8-40); MCHC 32.6 g/dl (32.0-35.9); MEAN CELL VOLUME 85.9 fl (80-96); MEAN PLT VOLUME 9.1 fl (7.5-11.1); MONO % 9.8 % (3.8-10.2); NEUT % 66.8 % (42.8-82.8); PLATELET COUNT 231 K/MM3 (134-434); RBC 4.61 M/mm3 (4.00-5.60); RDW 12.8 % (11.9-15.9); WHITE BLOOD COUNT 9.1 K/mm3 (4.0-10.0)
[2017-05-26 08:32] LABS: ANION GAP 8 (8-16); BLOOD UREA NITROGEN 12 mg/dL (7-18); CHLORIDE 103 mmol/L (98-107); CO2 28 mmol/L (21-32); POTASSIUM 4.4 mmol/L (3.5-5.1); SODIUM 139 mmol/L (136-145)
[2017-05-26 08:35] LABS: CREATININE 1.1 mg/dL (0.7-1.3); GLUCOSE,RANDOM 88 mg/dL (74-106)
[2017-05-26] MEDS ORDERED: PT OWN MED DRAWER 7, Y5N ONE ×2 (08:46→09:03)
[2017-05-26] MEDS: MUPIROCIN 2% TOPICAL OINTMENT FOR DECOLONIZATION NS SCH (09:04)
[2017-05-26] MEDS ORDERED: NICOTINE 14 MG/24 HOURS TOPICAL PATCH TD SCH (10:00)
[2017-05-26] MEDS ORDERED: BUPRENORPHINE/NALOXONE 2 MG/0.5 MG FILM PACKET SL SCH ×2 (10:00)
[2017-05-26] MEDS ORDERED: PRENATAL VITAMINS W/ FOLIC ACID TABLET (FP) PO SCH (10:00)
--- NOTE | 2017-05-26 11:19 | EKG ---
Test Reason : Blood Pressure : / mmHG Vent. Rate : 106 BPM Atrial Rate : 106 BPM P-R Int : 158 ms QRS Dur : 078 ms QT Int : 310 ms P-R-T Axes : 037 049 056 degrees QTc Int : 411 ms SINUS TACHYCARDIA NONSPECIFIC T WAVE ABNORMALITY ABNORMAL ECG WHEN COMPARED WITH ECG OF 25-MAY-2017 10:41, VENT. RATE HAS INCREASED BY [address] NO LONGER ELEVATED IN ANTEROLATERAL LEADS NONSPECIFIC T WAVE ABNORMALITY, WORSE IN ANTEROLATERAL LEADS Confirmed by ADA TOVAR MD ([id number]) on 05/26/2017 11:19:15 AM Referred By: Confirmed By:ADA TOVAR MD
--- NOTE | 2017-05-26 13:48 | PN ---
Teaching Attending Note Name of Resident: Sara Akhtar ATTENDING PHYSICIAN STATEMENT I saw and evaluated the patient. I reviewed the resident's note and discussed the case with the resident. I agree with the resident's findings and plan as documented. SUBJECTIVE: Patient is feeling better ,denies having any chest pain, no shortness of breath , wants to go home. OBJECTIVE: Vital Signs Temperature 98.9 F 05/26/17 08:10 Pulse Rate 90 05/26/17 08:10 Respiratory Rate 18 05/26/17 08:10 Blood Pressure 121/65 05/26/17 08:10 O2 Sat by Pulse Oximetry (%) 97 05/26/17 09:00 CBCD WBC 9.1 K/mm3 (4.0-10.0) 05/26/17 06:58 RBC 4.61 M/mm3 (4.00-5.60) 05/26/17 06:58 Hgb 12.9 GM/dL (11.7-16.9) 05/26/17 06:58 Hct 39.6 % (35.4-49) 05/26/17 06:58 MCV 85.9 fl (80-96) 05/26/17 06:58 MCHC 32.6 g/dl (32.0-35.9) 05/26/17 06:58 RDW 12.8 % (11.9-15.9) 05/26/17 06:58 Plt Count 231 K/MM3 (134-434) 05/26/17 06:58 MPV 9.1 fl (7.5-11.1) 05/26/17 06:58 CMP Sodium 139 mmol/L (136-145) 05/26/17 06:58 Potassium 4.4 mmol/L (3.5-5.1) 05/26/17 06:58 Chloride 103 mmol/L (98-107) 05/26/17 06:58 Carbon Dioxide 28 mmol/L (21-32) 05/26/17 06:58 Anion Gap 8 (8-16) 05/26/17 06:58 BUN 12 mg/dL (7-18) 05/26/17 06:58 Creatinine 1.1 mg/dL (0.7-1.3) 05/26/17 06:58 Creat Clearance w eGFR 58.73 (>60) 05/24/17 09:15 Random Glucose 88 mg/dL (74-106) 05/26/17 06:58 Calcium 9.0 mg/dL (8.5-10.1) 05/26/17 06:58 Total Bilirubin 0.4 mg/dL (0.2-1.0) 05/24/17 09:15 AST 17 U/L (15-37) 05/24/17 09:15 ALT 29 U/L (12-78) 05/24/17 09:15 Alkaline Phosphatase 100 U/L (45-117) 05/24/17 09:15 Total Protein 7.1 g/dl (6.4-8.2) 05/24/17 09:15 Albumin 3.5 g/dl (3.4-5.0) 05/24/17 09:15 CARDIAC ENZYMES Creatine Kinase 379 IU/L (39-308) H 05/24/17 09:15 Troponin I < 0.02 ng/ml (0.00-0.05) 05/25/17 15:00 Home Medication List Medication Instructions Recorded Confirmed Type NK [No Known Home Medication] 05/24/17 05/24/17 History Active Medications Generic Name Dose Route Start Last Admin Trade Name Freq PRN Reason Stop Dose Admin Albuterol Sulfate 1 amp 05/25/17 13:01 Ventolin 0.083% Nebulizer Soln - NEB Q4H PRN SHORT OF BREATH/WHEEZING Buprenorphine/Naloxone 2 each 05/26/17 10:00 05/26/17 09:08 Suboxone 2mg/0.5mg Sl Film - SL 2 each DAILY RICHARD Administration Heparin Sodium (Porcine) 5,000 unit 05/25/17 22:00 05/26/17 13:43 Heparin - SQ 5,000 unit TID RICHARD Administration Lorazepam 1 mg 05/25/17 18:27 Ativan Injection - IVPUSH Q4H PRN WITHDRAWAL(CONT SUBST) Mupirocin 1 applic 05/25/17 22:00 05/26/17 09:04 Bactroban Ointment (For Decolonization) - NS 05/29/17 21:59 Not Given BID RICHARD Nicotine 14 mg 05/26/17 10:00 05/26/17 09:07 Nicoderm Patch - TD 14 mg DAILY RICHARD Administration Nicotine Polacrilex 2 mg 05/25/17 14:44 Nicorette Gum - BUC Q2H PRN NICOTINE REPLACEMENT RX Multivit/Folic Acid/Iron 1 tab 05/26/17 10:00 05/26/17 09:08 Vitamins (Sjr) - PO 1 tab DAILY RICHARD Administration Thiamine HCl 100 mg 05/25/17 22:00 05/25/17 22:05 Vitamin B1 - PO 100 mg HS RICHARD Administration PE: NAD, round equal pupils , reactive to light AAox3 Cv: RRR Lungs: CTAB ext : no edema . no tremor ABd: soft, NT, ND , NL BS ASSESSMENT AND PLAN: Patient is a 31 y/o man with h/o polysubstance abuse who was brought in being unresponsiveness after heroin inhalation # s/p Heroin overdose : Patient is going to be followed with Dr. Hammer , given Rx By for Suboxone, has another appointment in a week period. #s/p ODALIS: improved post IVF # ETOH dependency ,patient will follow with and AA meeting. # EKG changes back to normal now, will send the patient to a audiovisual technician as an outpatient for follow up given the information at the clinic and/or with 's office. discharge patient now.
[2017-05-26] MEDS ORDERED: BUPRENORPHINE/NALOXONE 2 MG/0.5 MG FILM PACKET SL ONE (15:10)
[2017-05-26 15:36] VITALS: BP 147/84; PULSE 86; TEMP 99
--- NOTE | 2017-05-26 22:47 | DS ---
Physical Exam: SUBJECTIVE: Patient seen and examined. States feels much better. Reports drug dream last night. No sob, CP, chest tightness, abdominal pain, fever, chills, or n/v. Voiding and eating well. OBJECTIVE: Vital Signs Period Temp Pulse Resp BP Sys/Pascal Pulse Ox Last 24 Hr 98.9 F-99.0 F 86-93 18-20 121-147/65-84 97 PHYSICAL EXAM GENERAL: lying comfortably in bed, nad, aaox3 EYES: PERRLA, EOMI, conjunctiva clear ENT: oropharynx clear without exudates, mmm LUNGS: CTAB, no wheezes, crackles, rhonchi HEART: rrr, normal S1/S2, no JVD, no m/r/g ABDOMEN: Soft, ntnd, normoactive BS LOWER EXTREMITIES: 2+ DP, wwp, b/l trace edema NEUROLOGICAL: CN II-XII intact. Normal speech. Sensation intact. Motor strength 5/5 in all 4 extremities CBC, BMP 05/26/17 06:58 05/26/17 06:58 Hepatic Panel Total Bilirubin 0.4 mg/dL (0.2-1.0) 05/24/17 09:15 AST 17 U/L (15-37) 05/24/17 09:15 ALT 29 U/L (12-78) 05/24/17 09:15 Alkaline Phosphatase 100 U/L (45-117) 05/24/17 09:15 Albumin 3.5 g/dl (3.4-5.0) 05/24/17 09:15 HIV negative Microbiology 05/24/17 17:58 Sputum - Expectorated Gram Stain - Final 05/24/17 17:58 Sputum - Expectorated Sputum Culture - Final Streptococcus Pyogenes Grp A 05/24/17 18:00 Nasopharyngeal Swab Influenza Types A,B Antigen (GUALBERTO) - Final 05/24/17 18:00 Nasopharyngeal Swab - Final HOSPITAL COURSE: Date of Admission:05/24/17 Date of Discharge: 05/26/17 Pre-admission Course: 31yo man was found unresponsive in his friend's car after he inhaling a bag heroine this morning. EMS was called, and his RR was found to be 8 with pin- point pupils. He was given 2mg of Narcan in the field with improvement in mental status. When he regained consciousness he started having hemoptysis. Per patient, he had a similar heroine overdose recently and was hospitalized at [facility] for 4 days. He also mentions he had hemoptysis and "fluids in the lungs" during that admission. Denies chest pain, abdominal pain, nausea/ vomiting. Bowel/Bladder habit normal. Sleep/Appetite prior to illness is normal. ER course was notable for: (1) Creatinine 1.4 (baseline unknown) (2) EKG: Non specific T wave abnormality in lead V4-V6 (3) Placed on High flow oxygen Subsequent Hospital Course: On admission patient was placed in the ICU on high flow oxygen for acute hypoxic respiratory failure likely from acute lung injury due to drug inhalation (heroine, crack cocaine, marijuana). CT chest revealed findings of bilateral alveolar opacities consistent with vasogenic edema and h/o hemoptysis. Patient was successfully weaned off O2 therapy to RA. On discharge his pSaO2 was 97% on RA. Admission EKG revealed some non-specific T wave abnormalities in the leads V4-6. Due to history of cocaine use, a 2D ECHO was performed that showed normal LV systolic function, LVEF 55%, no valvular disease , and mild LA dilation. 2x Troponins with stable EKG findings. Patient was instructed to follow-up with Cardiology as an outpatient to follow if there are any EKG changes. Dr. Hammer was consulted for heroine detox protocol and patient was started on Suboxone. He reported that it helped control his cravings , withdrawal symptoms, and minimize drug dreams. He was offered in-patient rehab , but refused. He has agreed to intense out-patient rehab at [facility]. An appointment was made for him in 1 week, where he will be able to continue to receive suboxone. He was given 7 strips of Suboxone until his [facility] appointment. Patient reports drinking daily, but had no signs of withdrawal during his admission. Patient was tested for HIV, which was negative. All laboratory and imaging results were discussed with the patient. In-patient rehab resources were given to the patient. Consults: Detox - Dr. Abdullahi Hammer IMAGIND ECHO (05/25/17): LV size, thickness and function are normal. EF 55%. RV is normal size and function. LA is mildly dilated. RA size is normal. No significant valvular abnormalities. CT Chest (05/24/17): No prior CT studies are available for direct comparison. Alveolar opacities are seen with the anterior and posterior segments of the upper lobes bilaterally as well as the lower lobes bilaterally with relative peripheral sparing. No pleural effusion is identified. There is no definite cardiac enlargement. No pericardial effusion is seen. There is no discrete lymphadenopathy on noncontrast imaging. No gross endobronchial pathology is identified. The visualized osseous structures demonstrate no obvious CT evidence of acute pathology or neoplastic disease. IMPRESSION: Nonspecific diffuse bilateral alveolar opacities are noted consistent with a history of hemorrhage. The radiological differential diagnosis is broad and would also include additional etiologies such as cardiogenic and noncardiogenic edema, pneumonia, aspiration, alveolar proteinosis. CXR (05/25/17): Imaging reveals bilateral airspace changes with normal heart, normal aorta and prominent gallo. Correlation with chest CT from 05/24/2017 is suggested. CXR (05/24/17): Unremarkable contour of the cardiomediastinal silhouette. No evidence of blunting of the costophrenic angles, effacement of the diaphragms. No pneumothorax seen. No evidence of widening of the superior mediastinum. No bulky hilar adenopathy seen. Accentuated pulmonary vasculature. No evidence of peribronchial cuffing. There is suggestion of the right sided Raul's B lines. Ill-defined airspace opacity noted in the medial aspect of the left upper lung zone at the level of the aortic arch superior to the left hilum concerning for pneumonia, or pulmonary edema. IMPRESSION: No pneumothorax, or pleural effusion seen. Accentuated pulmonary vasculature. There is suggestion of the right-sided Raul's B lines. Pulmonary consolidation with air bronchograms is noted in the medial aspect of the left upper lung zone at the level of aortic arch, superior to the left hilum concerning for pneumonia, or pulmonary edema. Minutes to complete discharge: 45 Discharge Summary Reason For Visit: HEMOPTYSIS,DIACETYLMORPHINE OVERDOSE Condition: Stable - Instructions Diet, Activity, Other Instructions: You were admitted to the hospital for respiratory failure after a drug overdose. Recommendations: -You may resume your regular diet and daily activities. Medications: -A prescription for 7 doses of 8mg Suboxone was sent to your Pharmacy. Take one dose in the morning every day until your appointment at [facility] on 06/02 at 1PM. They will give you additional prescriptions of Suboxone. You should let them know as they may need to increase your dose. Follow-ups: -You have an appointment at [facility] on 06/02 at 1PM for out-patient detox. It is located at [address] [place] [address]. -Make an appointment at the [facility] to see a dry molder for abnormalities seen on your EKG. You can also make an appointment with Dr. Kenn Bryson, a Teleradiologist, for evaluation of your heart. Please return to the Emergency Department if you have any chest pain, shortness of breath, or new, worsening, or concerning symptoms. Referrals: Hugh Link RES [Resident] - 1 Week Ga Bryson MD [Staff Physician] - 1 Week Disposition: HOME - Home Medications Comprehensive Discharge Medication List: Ambulatory Orders Albuterol Sulfate Inhaler - [Ventolin HFA Inhaler -] 1 - 2 inh PO Q4H PRN #1 inhaler 05/26/17 Buprenorphine/Naloxone [Suboxone 8Mg/2Mg Sl Film -] 1 each SL DAILY 7 Days #7 packet MDD 1 05/26/17 This patient is new to me today: No Emergency Visit: No Critical Care patient: No - Discharge Referral [facility]erred to [facility] No
[2017-05-27] MEDS ORDERED: BUPRENORPHINE/NALOXONE 8 MG/2 MG FILM PACKET SL SCH (10:00)
== END 2017-05-26 17:53 | disposition home or self-care (01) | DRG 816 ==
LOC: JER 08:44 → JERBED 11:42 → JICU 18:22 → J6S 05-25 14:51
PROVIDERS: ADMIT Internal Medicine; ATTEND Internal Medicine
PROC: HZ2ZZZZ Detoxification Services for Substance Abuse Treatment (ICD-10-PCS; 2017-05-24)
PROC: 5A09457 Assistance with Respiratory Ventilation, 24-96 Consecutive Hours, Continuous Positive Airway Pressure (ICD-10-PCS; principal; 2017-05-25)
DX: T40.1X1A Poisoning by heroin, accidental (unintentional), initial encounter (principal); Y92.89 Other specified places as the place of occurrence of the external cause; N17.9 Acute kidney failure, unspecified; J96.01 Acute respiratory failure with hypoxia; R04.2 Hemoptysis; J45.901 Unspecified asthma with (acute) exacerbation; F10.20 Alcohol dependence, uncomplicated; E86.0 Dehydration; F14.20 Cocaine dependence, uncomplicated; F17.210 Nicotine dependence, cigarettes, uncomplicated; F11.23 Opioid dependence with withdrawal
CPT/HCPCS: 36415; 36600; 71010-TC; 71250-TC; 80048; 80053; 80307; 82550; 82553; 82803; 84484; 85025; 85027; 85610; 85730; 86850; 86900; 86901; 87070; 87186; 87205; 87389; 87804; 90688; 93005; 93010; 93306-TC; 94660; 99285-25; G0008; J1644; J7030

== ENCOUNTER 2017-06-18 16:10 | Emergency (ER) | payer OTHER ==
[2017-06-18] MEDS ORDERED: ACETAMINOPHEN 500 MG TABLET (FP) PO ONE (16:19)
[2017-06-18] MEDS ORDERED: ALBUTEROL SO4 2.5/IPRATROPIUM 0.5 INH SOL 3 ML VIAL.NEB. NEB ONE (16:20)
[2017-06-18 16:39] VITALS: BP 149/78; PULSE 51; TEMP 98.9; BMI 33.5
--- NOTE | 2017-06-18 18:48 | PDOC ---
History of Present Illness - General Chief Complaint: RX Refill Stated Complaint: DETOX Time Seen by Provider: 06/18/17 16:35 - History of Present Illness Initial Comments: 06/18/17 18:44 CHIEF COMPLAINT: rx refill HISTORY OF PRESENT ILLNESS: 32 yo M with hx of polysubstance abuse recently treated for opioid addiction with suboxone, presents to fast track with request for suboxone due to chronic pain to b/l legs. He reports that he always has this pain "but the suboxone helps it." Patient states that he ran out of suboxone and went back to the outpatient clinic where he was prescribed suboxone , but there were no appointments until the of this month. He states that the clinic told him to go to [facility], and [facility] was unable to write him a prescription and told him to come to this hospital in hopes of getting Suboxone here. No recent travel or sick contacts. PAST MEDICAL HISTORY: Denies past medical history FAMILY HISTORY: Denies SOCIAL HISTORY: Denies tobacco, alcohol, illicit drug use. SURGICAL HISTORY: Denies ALLERGIES: No known drug allergies REVIEW OF SYSTEMS General/Constitutional: Denies fever or chills. Denies weakness, weight change. HEENT: Denies change in vision. Denies ear pain or discharge. Denies sore throat. Cardiovascular: Denies chest pain or shortness of breath. Respiratory: Denies cough, wheezing, or hemoptysis. Gastrointestinal: Denies nausea, vomiting, diarrhea or constipation. Denies rectal bleeding. Genitourinary: Denies dysuria, frequency, or change in urination. Musculoskeletal: Chronic pain to b/l legs. Skin: Denies rash or easy bruising. PHYSICAL EXAM General Appearance: Well-appearing, appropriately dressed. No apparent distress. HEENT: EOMI, PERRLA. No photophobia, scleral icterus. Respiratory/Chest: Lungs CTAB. Cardiovascular: RRR. S1, S2. No JVD, murmur, bradycardia, tachycardia. Vascular Pulses: Dorsalis-Pedis (R): 2+, Dorsalis-Pedis (L): 2+ Musculoskeletal/Extremities: Normal inspection. FROM of all extremities, normal capillary refill. Pelvis Stable. No CVA tenderness. No tenderness to extremities, pedal edema, swelling, erythema or deformity. Integumentary: Appropriate color, dry, warm. No cyanosis, erythema, jaundice or rash Neurologic: wireworker II-XII intact. Fully oriented, alert. Appropriate mood/affect. Motor strength 5/5. No appreciable EOM palsy, facial droop or sensory deficit. Past History - Past Medical History Allergies/Adverse Reactions: Allergies Allergy/AdvReac Type Severity Reaction Status Date / Time No Known Allergies Allergy Verified 06/18/17 16:29 Home Medications: Ambulatory Orders Albuterol Sulfate Inhaler - [Ventolin HFA Inhaler -] 1 - 2 inh PO Q4H PRN #1 inhaler 05/26/17 Diclofenac Sodium 50 mg PO BID #14 tablet. 06/18/17 Asthma: Yes COPD: No - Suicide/Smoking/Psychosocial Hx Smoking History: Current every day smoker Have you smoked in the past 12 months: Yes Number of Cigarettes Smoked Daily: 3 Information on smoking cessation initiated: No 'Breaking Loose' booklet given: 05/24/17 Hx Alcohol Use: Yes (social) Drug/Substance Use Hx: Yes (HEROIN-3 WEEKS AGO-ON SUBAXONE) Substance Use Type: Heroin Hx Substance Use Treatment: No *Physical Exam - Vital Signs Last Vital Signs Temp Pulse Resp BP Pulse Ox 98.9 F 51 L 19 149/78 100 06/18/17 16:29 06/18/17 16:29 06/18/17 16:29 06/18/17 16:29 06/18/17 16:29 ED Treatment Course - Medications Given in the ED: ED Medications Discontinued Medications Generic Name Dose Route Start Last Admin Trade Name Freq PRN Reason Stop Dose Admin Acetaminophen 650 mg 06/18/17 16:19 06/18/17 16:41 Tylenol - PO 06/18/17 16:20 Not Given ONCE ONE Albuterol/Ipratropium 1 amp 06/18/17 16:20 06/18/17 16:41 Duoneb - NEB 06/18/17 16:21 Not Given ONCE ONE Medical Decision Making - Medical Decision Making 06/18/17 18:57 32 yo M with hx of polysubstance abuse recently treated for opioid addiction with suboxone, presents to fast track with request for suboxone due to chronic pain to b/l legs. Unable to prescribe Suboxone, no [facility] licensed providers in ED. Discussed with patient to take NSAIDs for pain, patient states "it's better than nothing." Diclofenac rx sent to pharm. Advised patient to take medication as prescribed and follow up with outpatient rehab clinic as scheduled. Advised patient of signs and symptoms for return to ED. Patient verbalized understanding and agrees to plan. 06/18/17 22:52 Patient walked out prior to receiving d/c papers *DC/Admit/Observation/Transfer Diagnosis at time of Disposition: Opioid dependence Qualifiers: Substance use status: with unspecified opioid-induced disorder Qualified Code(s ): F11.29 - Opioid dependence with unspecified opioid-induced disorder - Discharge Dispostion Disposition: HOME Condition at time of disposition: Stable Admit: No - Prescriptions Prescriptions: Diclofenac Sodium 50 mg PO BID #14 tablet.dr - Referrals - Patient Instructions Printed Discharge Instructions: DI for Opioid Addiction, DI for Prescription Opioid Use Additional Instructions: Please try to find a supportive environment to avoid relapse. Take medication as prescribed. Follow up with the clinic as scheduled. If you develop any shortness of breath, chest pain, palpitations, or any new or worsening symptoms , please return to the ER. - Post Discharge Activity
== END 2017-06-18 19:10 | disposition home or self-care (01) ==
LOC: JERFT 16:10
DX: F11.29 Opioid dependence with unspecified opioid-induced disorder (principal); Z87.09 Personal history of other diseases of the respiratory system
CPT/HCPCS: 87804; 99281-25

== ENCOUNTER 2017-09-15 08:14 | Inpatient (IN) | payer OTHER ==
[2017-09-15 10:04] VITALS: BMI 33.2
[2017-09-15] MEDS ORDERED: BUPRENORPHINE/NALOXONE 2 MG/0.5 MG FILM PACKET SL ONE (11:00)
--- NOTE | 2017-09-15 11:05 | HP ---
CIWA Score - CIWA Score Nausea/Vomitin Muscle Tremors: 3 Anxiety: 3 Agitation: 3 Paroxysmal Sweats: 3 Orientation: 0-Oriented Tacttile Disturbances: 1-Very Mild Itch/Numbness Auditory Disturbances: 0-None Visual Disturbances: 0-None Headache: 1-Very Mild CIWA-Ar Total Score: 17 Admission [facility] Chief Complaint: alcohol and heroin withdrawal sx Allergies/Adverse Reactions: Allergies Allergy/AdvReac Type Severity Reaction Status Date / Time No Known Allergies Allergy Verified 09/15/17 10:07 History of Present Illness: 32 yo m with h/o pioid disorder, severe, went to mother's house and self detoxed using alcohol but reports craving sand desire to use would liek to start MAT ofr OUD. reprots daily alcohol use, recently worsened becasue f herin detox, with withdrawal sx requesgting inpateint detox from alcohol. PMHX no iseures, no DTS, no SI , thristy, anxiety,depression and insomnia. HTN not on any medsications, asthm has pump Exam Limitations: No Limitations - Ebola screening Have you traveled outside of the country in the last 21 days: No Have you had contact with anyone from an Ebola affected area: No Have you been sick,other than usual withdrawal symptoms: No Do you have a fever: No - Review of Systems Constitutional: Chills, Diaphoresis, Night Sweats, Changes in sleep, Weight Stable EENT: reports: Tearing, Nose Congestion Respiratory: reports: No Symptoms reported Cardiac: reports: No Symptoms Reported, Syncope (sopemtiems from alcohol none recently) GI: reports: Diarrhea, Nausea, Poor Appetite, Poor Fluid Intake, Indigestion, Abdominal cramping : reports: No Symptoms Reported Musculoskeletal: reports: Back Pain, Muscle Pain, Neck Pain Integumentary: reports: Flushing, Sweating Neuro: reports: Headache, Numbness, Tingling, Tremors Endocrine: reports: Increased Thirst Hematology: reports: No Symptoms Reported Psychiatric: reports: Judgement Intact, Mood/Affect Appropiate, Orientated x3, Anxious, Depressed Other Systems: Reviewed and Negative Patient History - Patient Medical History Hx Anemia: No Hx Asthma: Yes (uses pump) Hx Chronic Obstructive Pulmonary Disease (COPD): No Hx Cancer: No Hx Cardiac Disorders: No Hx Congestive Heart Failure: No Hx Hypertension: No Hx Hypercholesterolemia: No Hx Pacemaker: No HX Cerebrovascular Accident: No Hx Seizures: No Hx Dementia: No Hx Diabetes: No Hx Gastrointestinal Disorders: Yes (acid reflux) Hx Liver Disease: No Hx Genitourinary Disorders: No Hx Sexually Transmitted Disorders: Yes (syphilis at age 26) Hx Renal Disease (ESRD): No Hx Thyroid Disease: No Hx Human Immunodeficiency Virus (HIV): No Hx Hepatitis C: No Hx Depression: Yes (from withdrawal ) Hx Suicide Attempt: No (si) Hx Bipolar Disorder: No Hx Schizophrenia: No - Patient Surgical History Past Surgical History: Yes Hx Neurologic Surgery: No Hx Cataract Extraction: No Hx Cardiac Surgery: No Hx Lung Surgery: No Hx Breast Surgery: No Hx Breast Biopsy: No Hx Abdominal Surgery: No Hx Appendectomy: No Hx Cholecystectomy: No Hx Genitourinary Surgery: No Hx Section: No Hx Orthopedic Surgery: Yes (torn right achilles tendon in 2011) Anesthesia Reaction: No - PPD History Previous Implant?: Yes Documented Results: Negative w/o proof Implanted On Prior [facility] Admission?: No PPD to be Administered?: Yes - Reproductive History Patient is a Female of Child Bearing Age (11 -55 yrs old): No Patient : No - Smoking Cessation Smoking history: Current every day smoker Have you smoked in the past 12 months: Yes Aproximately how many cigarettes per day: 6 Hx Chewing Tobacco Use: No Initiated information on smoking cessation: Yes 'Breaking Loose' booklet given: 09/15/17 - Substance & Tx. History Hx Alcohol Use: Yes Hx Substance Use: Yes Substance Use Type: Alcohol, Heroin, Opiates, Prescribed, Tranquilizers Hx Substance Use Treatment: Yes (Sheila ghotra, detox 2016 - [facility]) - Substances Abused Heroin Route: Inhalation Frequency: Daily Amount used: 1-2 bags Age of first use: 26 Date of Last Use: 09/11/17 Crack Route: Smoking Frequency: Daily Amount used: $50-100 Age of first use: 27 Date of Last Use: 09/14/17 Alcohol-vodka/beer Route: Oral Frequency: Daily Amount used: 2 pts./1-6 pk. Age of first use: 11 Date of Last Use: 09/15/17 Marijuana Route: Smoking Frequency: 3-6 times per week Amount used: $10 Age of first use: 12 Date of Last Use: 09/14/17 Family Disease History - Family Disease History Family Disease History: Diabetes: Father, Heart Disease: Mother, Other: Grandparent (alcoholism), Father, Brother (alcoholism) Other Family History: uncle and aunts addiction/alcoholism Admission Physical Exam [facility] - Vital Signs Vital Signs: Vital Signs - 24 hr 09/15/17 09:56 Temperature 98.8 F Pulse Rate 89 Respiratory 20 Rate Blood Pressure 158/97 - Physical General Appearance: Yes: Nourished, Appropriately Dressed, Disheveled, Mild Distress, Tremorous, Irritable, Sweating, Anxious HEENTM: Yes: EOMI, Hearing grossly Normal, Normocephalic, Normal Voice, BECKA, Pharynx Normal, Nasal Congestion, Rhinorrhea Respiratory: Yes: Within Normal Limits, Chest Non-Tender, Lungs Clear, Normal Breath Sounds, No Respiratory Distress, No Accessory Muscle Use Neck: Yes: Within Normal Limits, No masses,lesions,Nodules, Supple, Trachea in good position Breast: Yes: Breast Exam Deferred Cardiology: Yes: Within Normal Limits, Regular Rhythm, Regular Rate, S1, S2 Abdominal: Yes: Normal Bowel Sounds, Non Tender, Flat, Soft, Increased Bowel Sounds, Protuberent, Distended Genitourinary: Yes: Within Normal Limits Back: Yes: Muscle Spasm Extremities: Yes: Normal Capillary Refill, Normal Range of Motion, Non-Tender, Tremors Neurological: Yes: buhr dresser II-XII NML intact, Fully Oriented, Alert, Motor Strength 5/5, Normal Response, Depressed Affect Integumentary: Yes: Normal Color, Warm, Diaphoresis, Moist Lymphatic: Yes: Within Normal Limits - Addiitonal Findings: withdrawal sx - Diagnostic (1) Alcohol dependence with uncomplicated withdrawal Current Visit: Yes Status: Acute (2) Cocaine dependence Current Visit: No Status: Acute (3) Heroin overdose Current Visit: No Status: Acute Qualifiers: Encounter type: initial encounter Injury intent: accidental or unintentional Qualified Code(s): T40.1X1A - Poisoning by heroin, accidental ( unintentional), initial encounter (4) Marijuana dependence Current Visit: No Status: Acute (5) Opioid dependence with withdrawal Current Visit: No Status: Acute (6) Asthma Current Visit: Yes Status: Acute (7) Depression Current Visit: Yes Status: Acute (8) Nicotine dependence Current Visit: Yes Status: Acute (9) Obesity Current Visit: Yes Status: Acute Cleared for Admission [facility] - Detox or Rehab [facility] Level of Care: Medically Managed Detox Regimen/Protocol: Librium [facility] Breath Alcohol Content Breath Alcohol Content: 0 Urine Drug Screen - Results Drug Screen Negative: No Urine Drug Screen Results: THC-Marijuana, BRENDA-Cocaine
[2017-09-15] MEDS ORDERED: ACETAMINOPHEN 325 MG TABLET (FP) PO PRN (11:09)
[2017-09-15] MEDS ORDERED: chlordiazePOXIDE HCL 25 MG CAPSULE PO PRN (11:09)
[2017-09-15] MEDS ORDERED: MAGNESIUM CITRATE 300 ML BOTTLE PO PRN (11:09)
[2017-09-15] MEDS ORDERED: LOPERAMIDE HCL 2 MG CAPSULE PO PRN (11:09)
[2017-09-15] MEDS ORDERED: MAGNESIUM HYDROX 2400MG/30ML ORAL SUSPENSION 30 ML CUP PO PRN (11:09)
[2017-09-15] MEDS ORDERED: NICOTINE POLACRILEX 2 MG GUM BUC PRN (11:09)
[2017-09-15] MEDS ORDERED: hydrOXYzine PAMOATE 50 MG CAPSULE (FP) PO PRN (11:09)
[2017-09-15] MEDS ORDERED: guaiFENesin/D-METHORPHAN HB 10 ML UNIT-DOSE CUPS PO PRN (11:09)
[2017-09-15] MEDS ORDERED: IBUPROFEN 400 MG TABLET (FP) PO PRN (11:09)
[2017-09-15] MEDS ORDERED: P-EPHED 60MG/TRIPROLIDI 2.5MG TABLET PO PRN (11:09)
[2017-09-15] MEDS ORDERED: ALBUTEROL SO4 18 GM HFA INHALER IH PRN (11:11)
[2017-09-15] MEDS ORDERED: chlordiazePOXIDE HCL 25 MG CAPSULE PO ONE (12:30)
[2017-09-15] MEDS ORDERED: BUPRENORPHINE/NALOXONE 2 MG/0.5 MG FILM PACKET SL SCH (12:35)
[2017-09-15] MEDS: NICOTINE 14 MG/24 HOURS TOPICAL PATCH TD SCH (13:56)
[2017-09-15] MEDS: cloNIDine HCL 0.1 MG TABLET PO SCH ×2 (13:56→22:23)
--- NOTE | 2017-09-15 14:51 | CONSULT ---
[facility] Psychiatric Consult - Data Date of interview: 09/15/17 Admission source: [facility] Identifying data: First admission to [facility] for this 32 y/o AA male seeking detox treatment on for alcohol,heroin,cocaine (crack) and cannabis dependence.Patient is single,a father of one,homeless,unemployed and supported on food stamps. Substance Abuse History: Confirmed by patient in this interview.Details in current [facility] report includede in this document : Smoking history: Current every day smoker. Have you smoked in the past 12 months: Yes. Aproximately how many cigarettes per day: 6. Hx Chewing Tobacco Use: No. Initiated information on smoking cessation: Yes. 'Breaking Loose' booklet given: 09/15/17. - Substance & Tx. History. Hx Alcohol Use: Yes. Hx Substance Use: Yes. Substance Use Type : Alcohol, Heroin, Opiates, Prescribed, Tranquilizers. Hx Substance Use Treatment: Yes (Sheila paradise, detox 2016 - [facility]). - Substances Abused. Heroin. Route: Inhalation. Frequency: Daily. Amount used: 1-2 bags. Age of first use: 26. Date of Last Use: 09/11/17. Crack. Route: Smoking. Frequency: Daily. Amount used: $50-100. Age of first use: 27. Date of Last Use: 09/14/17. Alcohol-vodka/beer. Route: Oral. Frequency: Daily. Amount used: 2 pts./1-6 pk. Age of first use: 11. Date of Last Use: 09/15/17. Marijuana. Route: Smoking. Frequency: 3-6 times per week. Amount used: $10. Age of first use: 12. Date of Last Use: 09/14/17 Medical History: Recent admission to ICU at [facility] for heroin overdose (05/2017),obesity,GERD,past treatment for syphilis and orthosurgery for torn Achilles tendon (2011). Psychiatric History: Patient denies history of psychiatric hospitalizations or suicide attempts.Mr Knox reports a family history of psychiatric illness (one sibling is diagnosed with bipolar disorder and one maternal aunt was treated for schizophrenia).Patient denies prior history of psychiatric OPD care. Physical/Sexual Abuse/Trauma History: No history. Additional Comment: Urine Drug Screen Results: THC-Marijuana, BRENDA-Cocaine.Noted. Mental Status Exam - Mental Status Exam Alert and Oriented to: Time, Place, Person Cognitive Function: Good Patient Appearance: Well Groomed (tall stature,overweight) Mood: Hopeful, Euthymic Affect: Appropriate, Normal Range Patient Behavior: Appropriate (friendly), Cooperative Speech Pattern: Clear, Appropriate Voice Loudness: Normal Thought Process: Intact, Goal Oriented Thought Disorder: Not Present Hallucinations: Denies Suicidal Ideation: Denies Homicidal Ideation: Denies Insight/Judgement: Poor Sleep: Well Appetite: Good Muscle strength/Tone: Normal Gait/Station: Normal Psychiatric Findings - Problem List ([place] 1, 2,3) (1) Alcohol dependence with uncomplicated withdrawal Current Visit: Yes Status: Acute (2) Cocaine dependence Current Visit: Yes Status: Acute (3) Opioid dependence with withdrawal Current Visit: Yes Status: Acute (4) Marijuana dependence Current Visit: Yes Status: Acute (5) Nicotine dependence Current Visit: Yes Status: Acute (6) Substance induced mood disorder Current Visit: Yes Status: Acute - Initial Treatment Plan Initial Treatment Plan: Psychoeducation.Sleep hygiene.Detoxification initiated.Observation.
[2017-09-15] MEDS: chlordiazePOXIDE HCL 25 MG CAPSULE PO SCH ×2 (17:33→22:23)
[2017-09-15] MEDS ORDERED: MELATONIN 5 MG TABLETS PO PRN (22:00)
[2017-09-15] MEDS: THIAMINE HCL 100 MG TABLET (FP) PO SCH (22:23)
[2017-09-15 22:29] LABS: URINE APPEARANCE TURBID; URINE BILIRUBIN NEGATIVE (<2.0 mg/dL); URINE BLOOD NEGATIVE (NEGATIVE); URINE COLOR YELLOW; URINE GLUCOSE (UA) NEGATIVE (NEGATIVE); URINE KETONE NEGATIVE (NEGATIVE); URINE LEUK ESTERASE NEGATIVE (NEGATIVE); URINE NITRITE NEGATIVE (NEGATIVE); URINE UROBILINOGEN NEGATIVE mg/dL (0.2-1.0)
[2017-09-15 22:32] LABS: URINE PROTEIN 2+ (NEGATIVE)
[2017-09-15 22:40] LABS: YEAST MANY
--- NOTE | 2017-09-15 23:41 | EKG ---
Test Reason : Blood Pressure : / mmHG Vent. Rate : 094 BPM Atrial Rate : 094 BPM P-R Int : 148 ms QRS Dur : 088 ms QT Int : 356 ms P-R-T Axes : 057 057 045 degrees QTc Int : 445 ms NORMAL SINUS RHYTHM NORMAL ECG WHEN COMPARED WITH ECG OF 25-MAY-2017 18:50, NO SIGNIFICANT CHANGE WAS FOUND Confirmed by ADA TOVAR MD ([id number]) on 09/15/2017 11:41:07 PM Referred By: Confirmed By:ADA TOVAR MD
[2017-09-16] MEDS: chlordiazePOXIDE HCL 25 MG CAPSULE PO SCH ×4 (05:43→22:22)
[2017-09-16] MEDS: MENTHOL/PHENOL 1 EACH UD MM PRN (05:47)
[2017-09-16 10:08] LABS: HEMATOCRIT 43.3 % (35.4-49); HEMOGLOBIN 14.3 GM/dL (11.7-16.9); MCH 28.9 pg (25.7-33.7); MEAN CELL VOLUME 87.7 fl (80-96); MEAN PLT VOLUME 9.8 fl (7.5-11.1); PLATELET COUNT 281 K/MM3 (134-434); RBC 4.94 M/mm3 (4.00-5.60); RDW 14.7 % (11.9-15.9); WHITE BLOOD COUNT 10.3 K/mm3 (4.0-10.0)
[2017-09-16 10:26] LABS: CHLORIDE 103 mmol/L (98-107); POTASSIUM 4.6 mmol/L (3.5-5.1); SODIUM 139 mmol/L (136-145)
[2017-09-16] MEDS: cloNIDine HCL 0.1 MG TABLET PO SCH ×2 (10:32→22:22)
[2017-09-16] MEDS: BUPRENORPHINE/NALOXONE 8 MG/2 MG FILM PACKET SL SCH (10:32)
[2017-09-16] MEDS: PRENATAL VITAMINS W/ FOLIC ACID TABLET (FP) PO SCH (10:32)
[2017-09-16] MEDS: NICOTINE 14 MG/24 HOURS TOPICAL PATCH TD SCH (10:32)
[2017-09-16 10:36] LABS: ALBUMIN 4.3 g/dl (3.4-5.0); ALK PHOS 96 U/L (45-117); ANION GAP 9 (8-16); BILIRUBIN,TOTAL 0.3 mg/dL (0.2-1.0); BLOOD UREA NITROGEN 22 mg/dL (7-18); CALCIUM 9.5 mg/dL (8.5-10.1); CO2 27 mmol/L (21-32); CREATININE 1.4 mg/dL (0.7-1.3); GLUCOSE,RANDOM 127 mg/dL (74-106); SGOT/AST 19 U/L (15-37); SGPT/ALT 54 U/L (12-78); TOT PROT 8.1 g/dl (6.4-8.2)
--- NOTE | 2017-09-16 15:58 | EKG ---
Test Reason : Blood Pressure : / mmHG Vent. Rate : 081 BPM Atrial Rate : 081 BPM P-R Int : 162 ms QRS Dur : 090 ms QT Int : 374 ms P-R-T Axes : 026 033 030 degrees QTc Int : 434 ms NORMAL SINUS RHYTHM CANNOT RULE OUT INFERIOR INFARCT , AGE UNDETERMINED ABNORMAL ECG WHEN COMPARED WITH ECG OF 15-SEP-2017 14:56, NO SIGNIFICANT CHANGE WAS FOUND Confirmed by DIANE QUIÑONES, DEB ([id number]) on 09/16/2017 3:57:41 PM Referred By: Confirmed By:DEB CONTRERAS MD
--- NOTE | 2017-09-16 17:01 | PN ---
[facility] CIWA - CIWA Score Nausea/Vomitin-No Nausea/No Vomiting Muscle Tremors: None Anxiety: 3 Agitation: 3 Paroxysmal Sweats: 3 Orientation: 0-Oriented Tacttile Disturbances: 3-Moderate Itch/Numb/Burn Auditory Disturbances: 2-Mild Harshness/Frighten Visual Disturbances: 3-Moderate Sensitivity Headache: 0-None Present CIWA-Ar Total Score: 17 BHS Progress Note (SOAP) Subjective: Anxious, Sweating, Body Aches, Interrupted Sleep. Objective: PATIENT A & O X 3, OBSERVED AMBULATING ON UNIT. NO ACUTE DISTRESS. 09/16/17 16:58 Vital Signs Temperature 98.6 F 09/16/17 13:18 Pulse Rate 72 09/16/17 13:18 Respiratory Rate 18 09/16/17 13:18 Blood Pressure 136/80 09/16/17 13:18 O2 Sat by Pulse Oximetry (%) Laboratory Tests 09/15/17 09/16/17 09/16/17 17:30 05:50 05:50 WBC 10.3 H RBC 4.94 Hgb 14.3 D Hct 43.3 MCV 87.7 MCH 28.9 MCHC 33.0 RDW 14.7 D Plt Count 281 D MPV 9.8 Sodium 139 Potassium 4.6 Chloride 103 Carbon Dioxide 27 Anion Gap 9 BUN 22 H D Creatinine 1.4 H D Creat Clearance w eGFR 58.37 Random Glucose 127 H D Calcium 9.5 Total Bilirubin 0.3 D AST 19 ALT 54 D Alkaline Phosphatase 96 Total Protein 8.1 Albumin 4.3 D Urine Color Yellow Urine Appearance Turbid Urine pH 6.0 Ur Specific [place] 1.027 Urine Protein 2+ H Urine Glucose (UA) Negative Urine Ketones Negative Urine Blood Negative Urine Nitrite Negative Urine Bilirubin Negative Urine Urobilinogen Negative Ur Leukocyte Esterase Negative Urine WBC (Auto) 90 Urine RBC (Auto) 23 Urine Yeast Many LABS NOTED. RPR RESULT PENDING. 09/16/17 16:59 Assessment: 09/16/17 16:58 WITHDRAWAL SYMPTOMS. Plan: CONTINUE DETOX. INCREASE DAILY PO FLUID INTAKE. REPEAT UA FOR ADMISSION ABNORMALITIES. PATIENT REPORTS THAT HE IS FEELING IF CURRENT DAILY DOSE OF SUBOXONE IS SUFFICIENT AT THIS TIME TO HELP COPE WITH WITHDRAWAL SYMPTOMS AND CRAVINGS. WILL MAINTAIN AND MONITOR OVER NEXT FEW DAYS TO DETERMINE WHETHER OR NOT TITRATION IS NECESSARY.
[2017-09-16] MEDS: MAG HYDROX/AL HYDROX/SIMETH 30 ML UNIT-DOSE CUP PO PRN (19:23)
[2017-09-16 19:47] LABS: URINE APPEARANCE CLEAR; URINE BILIRUBIN NEGATIVE (<2.0 mg/dL); URINE BLOOD NEGATIVE (NEGATIVE); URINE COLOR COLORLESS; URINE GLUCOSE (UA) NEGATIVE (NEGATIVE); URINE KETONE NEGATIVE (NEGATIVE); URINE LEUK ESTERASE NEGATIVE (NEGATIVE); URINE NITRITE NEGATIVE (NEGATIVE); URINE PROTEIN NEGATIVE (NEGATIVE); URINE UROBILINOGEN NEGATIVE mg/dL (0.2-1.0)
[2017-09-16] MEDS: THIAMINE HCL 100 MG TABLET (FP) PO SCH (22:22)
[2017-09-17] MEDS: chlordiazePOXIDE HCL 25 MG CAPSULE PO SCH ×2 (05:57→10:59)
[2017-09-17] MEDS: BUPRENORPHINE/NALOXONE 8 MG/2 MG FILM PACKET SL SCH (10:59)
[2017-09-17] MEDS: cloNIDine HCL 0.1 MG TABLET PO SCH ×2 (10:59→22:31)
[2017-09-17] MEDS: PRENATAL VITAMINS W/ FOLIC ACID TABLET (FP) PO SCH (10:59)
[2017-09-17] MEDS: NICOTINE 14 MG/24 HOURS TOPICAL PATCH TD SCH (10:59)
--- NOTE | 2017-09-17 14:55 | PN ---
S CIWA - CIWA Score Nausea/Vomitin-No Nausea/No Vomiting Muscle Tremors: 4-Moderate,w/Arms Extend Anxiety: 4-Mod. Anxious/Guarded Agitation: 3 Paroxysmal Sweats: 3 Orientation: 0-Oriented Tacttile Disturbances: 0-None Auditory Disturbances: 0-None Visual Disturbances: 0-None Headache: 0-None Present CIWA-Ar Total Score: 14 BHS Progress Note (SOAP) Subjective: ANXIETY,SWEATS,DIARRHEA,HEARTBURN. Objective: 09/17/17 14:54 Vital Signs Temperature 98.2 F 09/17/17 13:27 Pulse Rate 96 H 09/17/17 13:27 Respiratory Rate 18 09/17/17 13:27 Blood Pressure 145/83 09/17/17 13:27 O2 Sat by Pulse Oximetry (%) Laboratory Tests 09/15/17 09/16/17 09/16/17 17:30 05:50 05:50 WBC 10.3 H RBC 4.94 Hgb 14.3 D Hct 43.3 MCV 87.7 MCH 28.9 MCHC 33.0 RDW 14.7 D Plt Count 281 D MPV 9.8 Sodium 139 Potassium 4.6 Chloride 103 Carbon Dioxide 27 Anion Gap 9 BUN 22 H D Creatinine 1.4 H D Creat Clearance w eGFR 58.37 Random Glucose 127 H D Calcium 9.5 Total Bilirubin 0.3 D AST 19 ALT 54 D Alkaline Phosphatase 96 Total Protein 8.1 Albumin 4.3 D Urine Color Yellow Urine Appearance Turbid Urine pH 6.0 Ur Specific [place] 1.027 Urine Protein 2+ H Urine Glucose (UA) Negative Urine Ketones Negative Urine Blood Negative Urine Nitrite Negative Urine Bilirubin Negative Urine Urobilinogen Negative Ur Leukocyte Esterase Negative Urine WBC (Auto) 90 Urine RBC (Auto) 23 Urine Yeast Many RPR Titer 09/16/17 09/16/17 05:50 15:56 WBC RBC Hgb Hct MCV MCH MCHC RDW Plt Count MPV Sodium Potassium Chloride Carbon Dioxide Anion Gap BUN Creatinine Creat Clearance w eGFR Random Glucose Calcium Total Bilirubin AST ALT Alkaline Phosphatase Total Protein Albumin Urine Color Colorless Urine Appearance Clear Urine pH 8.0 D Ur Specific [place] 1.005 Urine Protein Negative Urine Glucose (UA) Negative Urine Ketones Negative Urine Blood Negative Urine Nitrite Negative Urine Bilirubin Negative Urine Urobilinogen Negative Ur Leukocyte Esterase Negative Urine WBC (Auto) Urine RBC (Auto) Urine Yeast RPR Titer Nonreactive Assessment: 09/17/17 14:55 WITHDRAWAL SX Plan: CONTINUE DETOX IMODIUM PRN
[2017-09-17] MEDS: chlordiazePOXIDE 5 MG CAPSULE PO SCH ×2 (17:35→22:31)
[2017-09-17] MEDS: THIAMINE HCL 100 MG TABLET (FP) PO SCH (22:31)
[2017-09-17] MEDS: MAG HYDROX/AL HYDROX/SIMETH 30 ML UNIT-DOSE CUP PO PRN (23:24)
[2017-09-18] MEDS: MENTHOL/PHENOL 1 EACH UD MM PRN (03:40)
[2017-09-18] MEDS: chlordiazePOXIDE 5 MG CAPSULE PO SCH ×2 (05:54→10:53)
[2017-09-18] MEDS: cloNIDine HCL 0.1 MG TABLET PO SCH ×2 (10:52→22:42)
[2017-09-18] MEDS: PRENATAL VITAMINS W/ FOLIC ACID TABLET (FP) PO SCH (10:52)
[2017-09-18] MEDS: BUPRENORPHINE/NALOXONE 8 MG/2 MG FILM PACKET SL SCH (10:52)
[2017-09-18] MEDS: NICOTINE 14 MG/24 HOURS TOPICAL PATCH TD SCH (10:53)
[2017-09-18] MEDS: chlordiazePOXIDE HCL 10 MG CAPSULE PO SCH ×2 (17:24→22:42)
--- NOTE | 2017-09-18 18:36 | PN ---
BHS Progress Note (SOAP) Subjective: Anxious, Body Aches, Diarrhea, Fatigue. Objective: PATIENT A & O X 3, OBSERVED AMBULATING ON UNIT. NO ACUTE DISTRESS. 09/18/17 18:33 Vital Signs Temperature 98.1 F 09/18/17 18:09 Pulse Rate 66 09/18/17 18:09 Respiratory Rate 16 09/18/17 18:09 Blood Pressure 130/75 09/18/17 18:09 O2 Sat by Pulse Oximetry (%) Laboratory Tests 09/15/17 09/16/17 09/16/17 17:30 05:50 05:50 WBC 10.3 H RBC 4.94 Hgb 14.3 D Hct 43.3 MCV 87.7 MCH 28.9 MCHC 33.0 RDW 14.7 D Plt Count 281 D MPV 9.8 Sodium 139 Potassium 4.6 Chloride 103 Carbon Dioxide 27 Anion Gap 9 BUN 22 H D Creatinine 1.4 H D Creat Clearance w eGFR 58.37 Random Glucose 127 H D Calcium 9.5 Total Bilirubin 0.3 D AST 19 ALT 54 D Alkaline Phosphatase 96 Total Protein 8.1 Albumin 4.3 D Urine Color Yellow Urine Appearance Turbid Urine pH 6.0 Ur Specific [place] 1.027 Urine Protein 2+ H Urine Glucose (UA) Negative Urine Ketones Negative Urine Blood Negative Urine Nitrite Negative Urine Bilirubin Negative Urine Urobilinogen Negative Ur Leukocyte Esterase Negative Urine WBC (Auto) 90 Urine RBC (Auto) 23 Urine Yeast Many RPR Titer 09/16/17 09/16/17 05:50 15:56 WBC RBC Hgb Hct MCV MCH MCHC RDW Plt Count MPV Sodium Potassium Chloride Carbon Dioxide Anion Gap BUN Creatinine Creat Clearance w eGFR Random Glucose Calcium Total Bilirubin AST ALT Alkaline Phosphatase Total Protein Albumin Urine Color Colorless Urine Appearance Clear Urine pH 8.0 D Ur Specific [place] 1.005 Urine Protein Negative Urine Glucose (UA) Negative Urine Ketones Negative Urine Blood Negative Urine Nitrite Negative Urine Bilirubin Negative Urine Urobilinogen Negative Ur Leukocyte Esterase Negative Urine WBC (Auto) Urine RBC (Auto) Urine Yeast RPR Titer Nonreactive LABS NOTED. Assessment: 09/18/17 18:34 WITHDRAWAL SYMPTOMS. Plan: CONTINUE DETOX. DUE TO SEVERITY OF LINGERING DETOX SYMPTOMS AND DUE TO FACT THAT PATIENT IS RECENTLY INDUCTED ON SUBOXONE MAINTENANCE THERAPY, PATIENT PERMITTED TO REMAIN ON DETOX UNIT UNTIL 09/20/2017 (IF NECESSARY) IN ORDER TO HELP FACILITATE DISCHARGE ARRANGEMENTS, INCLUDING POSSIBILITY OF REHAB ADMISSION.
[2017-09-18] MEDS: THIAMINE HCL 100 MG TABLET (FP) PO SCH (22:42)
[2017-09-19] MEDS: MENTHOL/PHENOL 1 EACH UD MM PRN (05:39)
[2017-09-19] MEDS: chlordiazePOXIDE HCL 10 MG CAPSULE PO SCH ×2 (05:39→10:42)
--- NOTE | 2017-09-19 09:09 | DS ---
[facility] Detox Discharge Summary Admission Date: 09/15/17 Discharge Date: 09/19/17 - History Present History: Alcohol Dependence, Cannabis Dependence, Cocaine Dependence, Opioid Dependence - Physical Exam Results Vital Signs: Vital Signs Temperature 96.6 F L 09/19/17 06:29 Pulse Rate 78 09/19/17 06:29 Respiratory Rate 18 09/19/17 06:29 Blood Pressure 132/84 09/19/17 06:29 O2 Sat by Pulse Oximetry (%) - Treatment Hospital Course: Detox Protocol Followed, Detoxed Safely, Responded well, Discharged Condition Good, Rehab Referral Accepted - Medication Discharge Medications: Ambulatory Orders Albuterol Sulfate Inhaler - [Ventolin HFA Inhaler -] 2 inh PO Q4H PRN 09/15/17 - Diagnosis (1) Alcohol dependence with uncomplicated withdrawal Current Visit: Yes Status: Chronic (2) Asthma Current Visit: Yes Status: Acute Qualifiers: Asthma severity: mild Asthma persistence: intermittent Asthma complication type: uncomplicated Qualified Code(s): J45.20 - Mild intermittent asthma, uncomplicated (3) Cocaine dependence Current Visit: Yes Status: Chronic Qualifiers: Substance use status: uncomplicated Qualified Code(s): F14.20 - Cocaine dependence, uncomplicated (4) Depression Current Visit: Yes Status: Acute Qualifiers: Depression Type: unspecified Qualified Code(s): F32.9 - Major depressive disorder, single episode, unspecified (5) Marijuana dependence Current Visit: Yes Status: Acute (6) Nicotine dependence Current Visit: Yes Status: Chronic Qualifiers: Nicotine product type: cigarettes Substance use status: uncomplicated Qualified Code(s): F17.210 - Nicotine dependence, cigarettes, uncomplicated (7) Obesity Current Visit: Yes Status: Acute (8) Opioid dependence with withdrawal Current Visit: Yes Status: Acute (9) Substance induced mood disorder Current Visit: Yes Status: Acute (10) Heroin overdose Current Visit: No Status: Acute Qualifiers: Encounter type: initial encounter Injury intent: accidental or unintentional Qualified Code(s): T40.1X1A - Poisoning by heroin, accidental ( unintentional), initial encounter - AMA Did Patient Leave Against Medical Advice: No
[2017-09-19] MEDS: PRENATAL VITAMINS W/ FOLIC ACID TABLET (FP) PO SCH (10:41)
[2017-09-19] MEDS: BUPRENORPHINE/NALOXONE 8 MG/2 MG FILM PACKET SL SCH (10:41)
[2017-09-19] MEDS: cloNIDine HCL 0.1 MG TABLET PO SCH (10:41)
[2017-09-19] MEDS: NICOTINE 14 MG/24 HOURS TOPICAL PATCH TD SCH (10:42)
[2017-09-19 10:51] VITALS: BP 133/82; PULSE 95; TEMP 98.6
== END 2017-09-19 11:19 | disposition other institution (70) | DRG 773 ==
LOC: YASAS 08:14 → Y3N 12:26
PROVIDERS: ADMIT Internal Medicine; ATTEND Internal Medicine
PROC: HZ2ZZZZ Detoxification Services for Substance Abuse Treatment (ICD-10-PCS; principal; 2017-09-15)
DX: F11.23 Opioid dependence with withdrawal (principal); F10.230 Alcohol dependence with withdrawal, uncomplicated; F14.20 Cocaine dependence, uncomplicated; F12.20 Cannabis dependence, uncomplicated; F17.210 Nicotine dependence, cigarettes, uncomplicated; F19.24 Other psychoactive substance dependence with psychoactive substance-induced mood disorder; F32.9 Major depressive disorder, single episode, unspecified; J45.20 Mild intermittent asthma, uncomplicated; E66.9 Obesity, unspecified; Z68.33 Body mass index [BMI] 33.0-33.9, adult; Z86.19 Personal history of other infectious and parasitic diseases; Z91.5 Personal history of self-harm
CPT/HCPCS: 36415; 80053; 81003; 81015; 85027; 86593; 93005; 93010; J0735

== ENCOUNTER 2017-09-19 13:01 | Inpatient (IN) | payer OTHER ==
--- NOTE | 2017-09-19 13:18 | HP ---
[facility] Rehab Assess/Revision - Admission History Admitted to Rehab from: [facility] Date of Admission to Rehab: 09/20/15 - Findings Detox History & Physical reviewed: Yes Concur with findings: Yes Comments/Additional Findings: for rehab as protocol Inpatient Rehab Admission - Initial Determination Are CD services needed?: Yes Free of communicable disease: Yes Not in need of hospitalization: Yes - Rehab Admission Criteria Previous failed treatment: Yes Poor recovery environment: Yes Comorbidities: Yes Lacks judgement: No Patient is meeting Inpatient Rehab admission criteria:: Yes
[2017-09-19] MEDS ORDERED: P-EPHED 60MG/TRIPROLIDI 2.5MG TABLET PO PRN (13:19)
[2017-09-19] MEDS ORDERED: MAGNESIUM HYDROX 2400MG/30ML ORAL SUSPENSION 30 ML CUP PO PRN (13:19)
[2017-09-19] MEDS ORDERED: MAGNESIUM CITRATE 300 ML BOTTLE PO PRN (13:19)
[2017-09-19] MEDS ORDERED: guaiFENesin/D-METHORPHAN HB 5 ML UNIT-DOSE CUPS PO PRN (13:19)
[2017-09-19] MEDS ORDERED: ACETAMINOPHEN 325 MG TABLET (FP) PO PRN (13:19)
[2017-09-19] MEDS ORDERED: MAG HYDROX/AL HYDROX/SIMETH 30 ML UNIT-DOSE CUP PO PRN (13:19)
[2017-09-19] MEDS ORDERED: LOPERAMIDE HCL 2 MG CAPSULE PO PRN (13:19)
[2017-09-19] MEDS ORDERED: ALBUTEROL SO4 18 GM HFA INHALER IH PRN (13:20)
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
[2017-09-19] MEDS: MELATONIN 5 MG TABLETS PO PRN (21:38)
[2017-09-19] MEDS: THIAMINE HCL 100 MG TABLET (FP) PO SCH (21:39)
[2017-09-19] MEDS: SUVOREXANT 10 MG TABLET PO PRN (21:39)
[2017-09-20] MEDS: MENTHOL/PHENOL 1 EACH UD MM PRN (06:39)
[2017-09-20] MEDS: BUPRENORPHINE/NALOXONE 8 MG/2 MG FILM PACKET SL SCH (10:23)
[2017-09-20] MEDS: PRENATAL VITAMINS W/ FOLIC ACID TABLET (FP) PO SCH (10:23)
--- NOTE | 2017-09-20 13:08 | PN ---
[facility] Progress Note Note: Pt complains of muscle aches to legs. Vital Signs Temperature 97.4 F L 09/20/17 07:21 Pulse Rate 73 09/20/17 07:21 Respiratory Rate 18 09/20/17 07:21 Blood Pressure 125/95 09/20/17 07:21 O2 Sat by Pulse Oximetry (%) Obj: General: alert and oriented x 3. In no acute distress Skin: warm and dry Ext: no edema. Full ROM of all 4 extremities. No calf redness or tenderness. A/P: Muscle ache Will add flexeril 10mg TID prn continue to monitor
[2017-09-20] MEDS: THIAMINE HCL 100 MG TABLET (FP) PO SCH (21:30)
[2017-09-20] MEDS: SUVOREXANT 10 MG TABLET PO PRN (21:30)
[2017-09-20] MEDS: MELATONIN 5 MG TABLETS PO PRN (21:30)
[2017-09-21] MEDS: PRENATAL VITAMINS W/ FOLIC ACID TABLET (FP) PO SCH (10:14)
[2017-09-21] MEDS: BUPRENORPHINE/NALOXONE 8 MG/2 MG FILM PACKET SL SCH (10:14)
[2017-09-21] MEDS: SUVOREXANT 10 MG TABLET PO PRN (21:48)
[2017-09-21] MEDS: CYCLOBENZAPRINE HCL 10 MG TABLET (FP) PO PRN (21:48)
[2017-09-21] MEDS: THIAMINE HCL 100 MG TABLET (FP) PO SCH (22:35)
[2017-09-22] MEDS: CYCLOBENZAPRINE HCL 10 MG TABLET (FP) PO PRN ×3 (06:46→21:43)
[2017-09-22] MEDS: BUPRENORPHINE/NALOXONE 8 MG/2 MG FILM PACKET SL SCH (10:40)
[2017-09-22] MEDS: PRENATAL VITAMINS W/ FOLIC ACID TABLET (FP) PO SCH (10:40)
--- NOTE | 2017-09-22 13:33 | PN ---
[facility] Progress Note Note: Pt complains of low back pain. State Flexeril provides some relief. Did not request Ibuprofen as per MAR. Vital Signs Temperature 97.8 F 09/22/17 07:02 Pulse Rate 85 09/22/17 07:02 Respiratory Rate 20 09/22/17 07:02 Blood Pressure 131/91 09/22/17 07:02 O2 Sat by Pulse Oximetry (%) Subj: + dull ache to low back area, level 6-7/10. Obj: MS: no edema, +tactile tenderness to L spine area. Ambulates without device A/P: LBP Will continue Flexeril as ordered Add Lidocaine patch and continue to monitor clinically.
[2017-09-22] MEDS: IBUPROFEN 400 MG TABLET (FP) PO PRN (17:22)
[2017-09-22] MEDS: THIAMINE HCL 100 MG TABLET (FP) PO SCH (21:43)
[2017-09-22] MEDS: SUVOREXANT 10 MG TABLET PO PRN (21:43)
[2017-09-22] MEDS: LIDOCAINE PATCH REMOVAL MC SCH (21:54)
[2017-09-23] MEDS: PRENATAL VITAMINS W/ FOLIC ACID TABLET (FP) PO SCH (10:26)
[2017-09-23] MEDS: BUPRENORPHINE/NALOXONE 8 MG/2 MG FILM PACKET SL SCH (10:26)
[2017-09-23] MEDS: LIDOCAINE 5% TOPICAL PATCH TP SCH (10:26)
[2017-09-23] MEDS: CYCLOBENZAPRINE HCL 10 MG TABLET (FP) PO PRN ×2 (10:28→22:12)
[2017-09-23] MEDS: IBUPROFEN 400 MG TABLET (FP) PO PRN ×2 (10:28→22:13)
[2017-09-23] MEDS: THIAMINE HCL 100 MG TABLET (FP) PO SCH (22:11)
[2017-09-23] MEDS: LIDOCAINE PATCH REMOVAL MC SCH (22:11)
[2017-09-23] MEDS: hydrOXYzine PAMOATE 50 MG CAPSULE (FP) PO PRN (22:13)
[2017-09-24] MEDS: PRENATAL VITAMINS W/ FOLIC ACID TABLET (FP) PO SCH (10:26)
[2017-09-24] MEDS: LIDOCAINE 5% TOPICAL PATCH TP SCH (10:26)
[2017-09-24] MEDS: BUPRENORPHINE/NALOXONE 8 MG/2 MG FILM PACKET SL SCH (10:26)
[2017-09-24] MEDS: CYCLOBENZAPRINE HCL 10 MG TABLET (FP) PO PRN ×2 (10:27→21:53)
[2017-09-24] MEDS: IBUPROFEN 400 MG TABLET (FP) PO PRN ×2 (10:27→21:53)
[2017-09-24] MEDS: SUVOREXANT 10 MG TABLET PO PRN (21:53)
[2017-09-24] MEDS: MELATONIN 5 MG TABLETS PO PRN (21:53)
[2017-09-24] MEDS: THIAMINE HCL 100 MG TABLET (FP) PO SCH (21:53)
[2017-09-24] MEDS: LIDOCAINE PATCH REMOVAL MC SCH (21:53)
[2017-09-25] MEDS: BUPRENORPHINE/NALOXONE 8 MG/2 MG FILM PACKET SL SCH (09:48)
[2017-09-25] MEDS: LIDOCAINE 5% TOPICAL PATCH TP SCH (09:49)
[2017-09-25] MEDS: PRENATAL VITAMINS W/ FOLIC ACID TABLET (FP) PO SCH (09:49)
[2017-09-25] MEDS: CYCLOBENZAPRINE HCL 10 MG TABLET (FP) PO PRN ×2 (09:50→22:01)
[2017-09-25] MEDS: IBUPROFEN 400 MG TABLET (FP) PO PRN ×2 (09:50→22:00)
[2017-09-25] MEDS: SUVOREXANT 10 MG TABLET PO PRN (21:59)
[2017-09-25] MEDS: MELATONIN 5 MG TABLETS PO PRN (22:00)
[2017-09-25] MEDS: THIAMINE HCL 100 MG TABLET (FP) PO SCH (22:01)
[2017-09-25] MEDS: LIDOCAINE PATCH REMOVAL MC SCH (22:01)
[2017-09-26] MEDS: PRENATAL VITAMINS W/ FOLIC ACID TABLET (FP) PO SCH (10:11)
[2017-09-26] MEDS: LIDOCAINE 5% TOPICAL PATCH TP SCH (10:11)
[2017-09-26] MEDS: BUPRENORPHINE/NALOXONE 8 MG/2 MG FILM PACKET SL SCH (10:11)
[2017-09-26] MEDS: CYCLOBENZAPRINE HCL 10 MG TABLET (FP) PO PRN ×2 (10:12→22:18)
[2017-09-26] MEDS: IBUPROFEN 400 MG TABLET (FP) PO PRN ×2 (10:12→22:18)
[2017-09-26] MEDS: THIAMINE HCL 100 MG TABLET (FP) PO SCH (22:15)
[2017-09-26] MEDS: LIDOCAINE PATCH REMOVAL MC SCH (22:15)
[2017-09-26] MEDS: SUVOREXANT 10 MG TABLET PO PRN (22:17)
[2017-09-26] MEDS: hydrOXYzine PAMOATE 50 MG CAPSULE (FP) PO PRN (22:18)
[2017-09-26] MEDS: MELATONIN 5 MG TABLETS PO PRN (22:18)
[2017-09-27] MEDS ORDERED: PT OWN MED DRAWER 7, Y5N ONE (10:14)
[2017-09-27] MEDS: PRENATAL VITAMINS W/ FOLIC ACID TABLET (FP) PO SCH (10:25)
[2017-09-27] MEDS: BUPRENORPHINE/NALOXONE 8 MG/2 MG FILM PACKET SL SCH (10:25)
[2017-09-27] MEDS: IBUPROFEN 400 MG TABLET (FP) PO PRN ×2 (10:27→21:41)
[2017-09-27] MEDS: CYCLOBENZAPRINE HCL 10 MG TABLET (FP) PO PRN ×2 (10:27→21:40)
[2017-09-27] MEDS: hydrOXYzine PAMOATE 50 MG CAPSULE (FP) PO PRN ×2 (10:27→21:40)
[2017-09-27] MEDS: LIDOCAINE 5% TOPICAL PATCH TP SCH (10:28)
[2017-09-27] MEDS: MELATONIN 5 MG TABLETS PO PRN (21:40)
[2017-09-27] MEDS: SUVOREXANT 10 MG TABLET PO PRN (21:40)
[2017-09-27] MEDS: THIAMINE HCL 100 MG TABLET (FP) PO SCH (21:42)
[2017-09-27] MEDS: LIDOCAINE PATCH REMOVAL MC SCH (22:22)
[2017-09-28] MEDS: PRENATAL VITAMINS W/ FOLIC ACID TABLET (FP) PO SCH (10:30)
[2017-09-28] MEDS: BUPRENORPHINE/NALOXONE 8 MG/2 MG FILM PACKET SL SCH (10:30)
[2017-09-28] MEDS: LIDOCAINE 5% TOPICAL PATCH TP SCH (10:31)
[2017-09-28] MEDS: hydrOXYzine PAMOATE 50 MG CAPSULE (FP) PO PRN ×2 (10:31→21:51)
[2017-09-28] MEDS: IBUPROFEN 400 MG TABLET (FP) PO PRN ×2 (10:31→21:50)
--- NOTE | 2017-09-28 16:01 | PN ---
[facility] Progress Note Note: Boil on the right buttocks near the anus. Patient reports he gets boils in dofferent locations Vital Signs Temperature 97.7 F 09/28/17 06:52 Pulse Rate 85 09/28/17 06:52 Respiratory Rate 18 09/28/17 06:52 Blood Pressure 131/76 09/28/17 06:52 O2 Sat by Pulse Oximetry (%) A/P Normal HR and rhythm Lungs clear through out, no adventitious breath sounds + boil right buttock Plan: Mupirocin top TID warm compress PRN continue to monitor
[2017-09-28] MEDS: CYCLOBENZAPRINE HCL 10 MG TABLET (FP) PO PRN (21:50)
[2017-09-28] MEDS: SUVOREXANT 10 MG TABLET PO PRN (21:50)
[2017-09-28] MEDS: THIAMINE HCL 100 MG TABLET (FP) PO SCH (21:50)
[2017-09-28] MEDS: MUPIROCIN CA 2% TOPICAL CREAM 15 GM TUBE TP SCH (21:52)
[2017-09-28] MEDS: LIDOCAINE PATCH REMOVAL MC SCH (21:52)
[2017-09-29] MEDS: MUPIROCIN CA 2% TOPICAL CREAM 15 GM TUBE TP SCH ×3 (05:55→21:53)
[2017-09-29] MEDS: CYCLOBENZAPRINE HCL 10 MG TABLET (FP) PO PRN ×2 (10:23→21:53)
[2017-09-29] MEDS: IBUPROFEN 400 MG TABLET (FP) PO PRN (10:23)
[2017-09-29] MEDS: BUPRENORPHINE/NALOXONE 8 MG/2 MG FILM PACKET SL SCH (10:23)
[2017-09-29] MEDS: hydrOXYzine PAMOATE 50 MG CAPSULE (FP) PO PRN ×2 (10:24→21:53)
[2017-09-29] MEDS: LIDOCAINE 5% TOPICAL PATCH TP SCH (10:24)
[2017-09-29] MEDS: PRENATAL VITAMINS W/ FOLIC ACID TABLET (FP) PO SCH (10:24)
[2017-09-29] MEDS ORDERED: PT OWN MED DRAWER 7, Y5N ONE (11:02)
[2017-09-29] MEDS: THIAMINE HCL 100 MG TABLET (FP) PO SCH (21:52)
[2017-09-29] MEDS: MELATONIN 5 MG TABLETS PO PRN (21:53)
[2017-09-29] MEDS: SUVOREXANT 10 MG TABLET PO PRN (21:53)
[2017-09-29] MEDS: LIDOCAINE PATCH REMOVAL MC SCH (21:54)
[2017-09-30] MEDS ORDERED: PT OWN MED DRAWER 7, Y5N ONE ×2 (03:21→13:40)
[2017-09-30] MEDS: MUPIROCIN CA 2% TOPICAL CREAM 15 GM TUBE TP SCH ×3 (06:03→21:45)
[2017-09-30] MEDS: BUPRENORPHINE/NALOXONE 8 MG/2 MG FILM PACKET SL SCH (10:19)
[2017-09-30] MEDS: LIDOCAINE 5% TOPICAL PATCH TP SCH (10:19)
[2017-09-30] MEDS: PRENATAL VITAMINS W/ FOLIC ACID TABLET (FP) PO SCH (10:19)
[2017-09-30] MEDS: hydrOXYzine PAMOATE 50 MG CAPSULE (FP) PO PRN ×2 (10:21→21:45)
[2017-09-30] MEDS: CYCLOBENZAPRINE HCL 10 MG TABLET (FP) PO PRN ×2 (10:21→21:45)
[2017-09-30] MEDS: THIAMINE HCL 100 MG TABLET (FP) PO SCH (21:45)
[2017-09-30] MEDS: SUVOREXANT 10 MG TABLET PO PRN (21:45)
[2017-09-30] MEDS: IBUPROFEN 400 MG TABLET (FP) PO PRN (21:46)
[2017-09-30] MEDS: LIDOCAINE PATCH REMOVAL MC SCH (21:46)
[2017-09-30] MEDS: MELATONIN 5 MG TABLETS PO PRN (23:02)
[2017-10-01] MEDS ORDERED: PT OWN MED DRAWER 7, Y5N ONE ×3 (03:09→15:08)
[2017-10-01] MEDS: MUPIROCIN CA 2% TOPICAL CREAM 15 GM TUBE TP SCH ×3 (06:36→21:43)
[2017-10-01] MEDS: PRENATAL VITAMINS W/ FOLIC ACID TABLET (FP) PO SCH (10:15)
[2017-10-01] MEDS: IBUPROFEN 400 MG TABLET (FP) PO PRN ×2 (10:15→21:45)
[2017-10-01] MEDS: CYCLOBENZAPRINE HCL 10 MG TABLET (FP) PO PRN (10:15)
[2017-10-01] MEDS: BUPRENORPHINE/NALOXONE 8 MG/2 MG FILM PACKET SL SCH (10:15)
[2017-10-01] MEDS: LIDOCAINE 5% TOPICAL PATCH TP SCH (10:15)
[2017-10-01] MEDS: THIAMINE HCL 100 MG TABLET (FP) PO SCH (21:43)
[2017-10-01] MEDS: SUVOREXANT 10 MG TABLET PO PRN (21:43)
[2017-10-01] MEDS: MELATONIN 5 MG TABLETS PO PRN (21:43)
[2017-10-01] MEDS: hydrOXYzine PAMOATE 50 MG CAPSULE (FP) PO PRN (21:43)
[2017-10-01] MEDS: LIDOCAINE PATCH REMOVAL MC SCH (21:44)
[2017-10-02] MEDS: MUPIROCIN CA 2% TOPICAL CREAM 15 GM TUBE TP SCH ×3 (06:16→21:56)
[2017-10-02] MEDS ORDERED: PT OWN MED DRAWER 7, Y5N ONE (08:46)
[2017-10-02] MEDS: BUPRENORPHINE/NALOXONE 8 MG/2 MG FILM PACKET SL SCH (10:21)
[2017-10-02] MEDS: CYCLOBENZAPRINE HCL 10 MG TABLET (FP) PO PRN ×2 (10:21→21:42)
[2017-10-02] MEDS: IBUPROFEN 400 MG TABLET (FP) PO PRN ×2 (10:21→21:42)
[2017-10-02] MEDS: PRENATAL VITAMINS W/ FOLIC ACID TABLET (FP) PO SCH (10:21)
[2017-10-02] MEDS: LIDOCAINE 5% TOPICAL PATCH TP SCH (10:22)
[2017-10-02] MEDS: hydrOXYzine PAMOATE 50 MG CAPSULE (FP) PO PRN ×2 (10:23→21:42)
[2017-10-02] MEDS: SUVOREXANT 10 MG TABLET PO PRN (21:42)
[2017-10-02] MEDS: MELATONIN 5 MG TABLETS PO PRN (21:42)
[2017-10-02] MEDS: THIAMINE HCL 100 MG TABLET (FP) PO SCH (21:43)
[2017-10-02] MEDS: LIDOCAINE PATCH REMOVAL MC SCH (21:56)
[2017-10-03] MEDS: MUPIROCIN CA 2% TOPICAL CREAM 15 GM TUBE TP SCH ×3 (06:21→21:41)
[2017-10-03] MEDS: IBUPROFEN 400 MG TABLET (FP) PO PRN ×3 (06:22→21:42)
[2017-10-03] MEDS: hydrOXYzine PAMOATE 50 MG CAPSULE (FP) PO PRN ×2 (10:13→21:42)
[2017-10-03] MEDS: CYCLOBENZAPRINE HCL 10 MG TABLET (FP) PO PRN ×2 (10:13→21:42)
[2017-10-03] MEDS: BUPRENORPHINE/NALOXONE 8 MG/2 MG FILM PACKET SL SCH (10:13)
[2017-10-03] MEDS: PRENATAL VITAMINS W/ FOLIC ACID TABLET (FP) PO SCH (10:13)
[2017-10-03] MEDS: LIDOCAINE 5% TOPICAL PATCH TP SCH (10:14)
--- NOTE | 2017-10-03 15:55 | PN ---
Psychiatric Progress Note Vital Signs: Vital Signs Period Temp Pulse Resp BP Sys/Pascal Pulse Ox Last 24 Hr 97.7 F 81 18-20 132/83 Date of Session: 10/03/17 Chief Complaint:: Discharge ote HPI: Patient addressing Alcohol, Opioid, Cocaine and Cannabis Dependence comorbid with Nicotine Dependence, Substance-Induced Mood Disorder and Substance -Induced Sleep Disorder Current Medications: Active Medications Generic Name Dose Route Start Last Admin Trade Name Freq PRN Reason Stop Dose Admin Acetaminophen 650 mg 09/19/17 13:19 09/22/17 21:42 Tylenol - PO 650 mg Q4H PRN Administration FEVER Al Hydroxide/Mg Hydroxide 30 ml 09/19/17 13:19 Mylanta Oral Suspension - PO Q6H PRN DYSPEPSIA Albuterol Sulfate 2 puff 09/19/17 13:20 Ventolin Hfa Inhaler - IH Q4H PRN ASTHMA Buprenorphine/Naloxone 1 each 09/27/17 10:00 10/03/17 10:13 Suboxone 8mg/2mg Sl Film - SL 10/04/17 09:59 1 each DAILY RICHARD Administration Cyclobenzaprine HCl 10 mg 09/20/17 13:06 10/03/17 10:13 Flexeril - PO 10 mg TID PRN Administration MUSCLE SPASMS Eucalyptus/Menthol/Phenol/Sorbitol 1 each 09/19/17 13:19 09/20/17 06:39 Cepastat Lozenge - MM 1 each Q4H PRN Administration SORE THROAT Guaifenesin 5 ml 09/19/17 13:19 Guaifenesin Dm Syrup PO Q6H PRN COUGH Hydroxyzine Pamoate 50 mg 09/19/17 13:19 10/03/17 10:13 Vistaril - PO 50 mg Q4H PRN Administration AGITATION Ibuprofen 400 mg 09/19/17 13:19 10/03/17 14:47 Motrin - PO 400 mg Q6H PRN Administration Pain Level 4-6 Lidocaine 1 patch 09/23/17 10:00 10/03/17 10:14 Lidoderm Patch - TP 1 patch DAILY RICHARD Administration Loperamide HCl 4 mg 09/19/17 13:19 Imodium - PO Q6H PRN DIARRHEA Magnesium Citrate 300 ml 09/19/17 13:19 Citroma - PO Q48H PRN CONSTIPATION Magnesium Hydroxide 30 ml 09/19/17 13:19 Milk Of Magnesia - PO DAILY PRN CONSTIPATION Melatonin 5 mg 09/19/17 22:00 10/02/17 21:42 Melatonin PO 5 mg HS PRN Administration INSOMNIA Miscellaneous 1 each 09/22/17 22:00 10/02/17 21:56 Lidoderm Patch Removal MC 1 each DAILY@2200 RICHARD Administration Mupirocin 1 applic 09/28/17 22:00 10/03/17 14:55 Bactroban 2% Cream - TP 1 applic TID RICHARD Administration Multivit/Folic Acid/Iron 1 tab 09/20/17 10:00 10/03/17 10:13 Vitamins (Sjr) - PO 1 tab DAILY RICHARD Administration Pseudoephedrine/Triprolidine 1 combo 09/19/17 13:19 Actifed - PO TID PRN NASAL CONGESTION Suvorexant 10 mg 10/01/17 22:00 10/02/17 21:42 Belsomra PO 10 mg HS PRN Administration INSOMNIA Thiamine HCl 100 mg 09/19/17 22:00 10/02/17 21:43 Vitamin B1 - PO 100 mg HS RICHARD Administration Current Side Effect: No Lab tests ordered: Yes Lab tests reviewed: Yes Provider note:: Patient will complete this program on 10/04/17. He has met his treatment goals and will continue to address his issues in intermediate project manager residential treatment at [facility]. Told repairer typewriter that from his participation in this program, he has learned to value himself and come up with a strategy in order to maintain abstinence. He responded well to Belsomra prn for insomnia. He is stable for discharge on 10/04/17 Total face to face time:: 35 Mental Status Exam - Mental Status Exam Alert and Oriented to: Time, Place, Person Cognitive Function: Fair Patient Appearance: Well Groomed Mood: Hopeful, Euthymic Affect: Appropriate Patient Behavior: Cooperative Speech Pattern: Clear Voice Loudness: Normal Thought Process: Intact, Goal Oriented Thought Disorder: Not Present Hallucinations: Denies Suicidal Ideation: Denies Homicidal Ideation: Denies Insight/Judgement: Fair Sleep: Fair Appetite: Good Muscle strength/Tone: Normal Gait/Station: Normal Psychiatric Treatment Plan - Problem List (1) Substance induced mood disorder Current Visit: Yes (2) Substance-induced sleep disorder Current Visit: Yes (3) Alcohol dependence Current Visit: Yes (4) Opioid dependence Current Visit: Yes (5) Cocaine dependence Current Visit: No Qualifiers: Substance use status: uncomplicated Qualified Code(s): F14.20 - Cocaine dependence, uncomplicated (6) Cannabis dependence Current Visit: Yes (7) Nicotine dependence Current Visit: No Qualifiers: Nicotine product type: cigarettes Substance use status: uncomplicated Qualified Code(s): F17.210 - Nicotine dependence, cigarettes, uncomplicated (8) Asthma Current Visit: No Qualifiers: Asthma severity: mild Asthma persistence: intermittent Asthma complication type: uncomplicated Qualified Code(s): J45.20 - Mild intermittent asthma, uncomplicated (9) Obesity Current Visit: No Initial treatment plan: Patient will be discharged tomorrow and referred to [facility] for intermediate project manager residential treatment
[2017-10-03] MEDS: SUVOREXANT 10 MG TABLET PO PRN (21:42)
[2017-10-03] MEDS: THIAMINE HCL 100 MG TABLET (FP) PO SCH (21:42)
[2017-10-03] MEDS: MELATONIN 5 MG TABLETS PO PRN (21:42)
[2017-10-03] MEDS: LIDOCAINE PATCH REMOVAL MC SCH (21:44)
[2017-10-04] MEDS ORDERED: PT OWN MED DRAWER 7, Y5N ONE (03:09)
[2017-10-04] MEDS: MUPIROCIN CA 2% TOPICAL CREAM 15 GM TUBE TP SCH (06:31)
[2017-10-04 06:54] VITALS: BP 130/76; PULSE 79; TEMP 97.8
[2017-10-04] MEDS: MENTHOL/PHENOL 1 EACH UD MM PRN (07:32)
[2017-10-04] MEDS ORDERED: BUPRENORPHINE/NALOXONE 8 MG/2 MG FILM PACKET SL ONE (09:45)
[2017-10-04] MEDS: IBUPROFEN 400 MG TABLET (FP) PO PRN (10:07)
[2017-10-04] MEDS: PRENATAL VITAMINS W/ FOLIC ACID TABLET (FP) PO SCH (10:07)
[2017-10-04] MEDS: hydrOXYzine PAMOATE 50 MG CAPSULE (FP) PO PRN (10:07)
[2017-10-04] MEDS: CYCLOBENZAPRINE HCL 10 MG TABLET (FP) PO PRN (10:07)
[2017-10-04] MEDS: LIDOCAINE 5% TOPICAL PATCH TP SCH (10:08)
== END 2017-10-04 10:35 | disposition home or self-care (01) | DRG 772 ==
LOC: YASAS 13:01 → Y3W 13:02
PROVIDERS: ADMIT Psychiatry & Neurology Psychiatry; ATTEND Psychiatry & Neurology Psychiatry
PROC: HZ42ZZZ Group Counseling for Substance Abuse Treatment, Cognitive-Behavioral (ICD-10-PCS; principal; 2017-09-19)
DX: F11.20 Opioid dependence, uncomplicated (principal); F10.230 Alcohol dependence with withdrawal, uncomplicated; F14.20 Cocaine dependence, uncomplicated; F12.20 Cannabis dependence, uncomplicated; F17.210 Nicotine dependence, cigarettes, uncomplicated; F19.24 Other psychoactive substance dependence with psychoactive substance-induced mood disorder; F19.282 Other psychoactive substance dependence with psychoactive substance-induced sleep disorder; M79.1 Myalgia; E66.9 Obesity, unspecified; Z68.35 Body mass index [BMI] 35.0-35.9, adult; M54.40 Lumbago with sciatica, unspecified side; Z59.0 Homelessness

== ENCOUNTER 2021-05-07 20:56 | Inpatient (IN) | payer BC ==
[2021-05-07] MEDS ORDERED: DICYCLOMINE HCL 10 MG CAPSULE PO PRN (21:42)
[2021-05-07] MEDS ORDERED: ACETAMINOPHEN 325 MG TABLET (FP) PO PRN ×2 (21:42)
[2021-05-07] MEDS ORDERED: MAGNESIUM CITRATE 300 ML BOTTLE PO PRN (21:42)
[2021-05-07] MEDS ORDERED: MAG HYDROX/AL HYDROX/SIMETH 30 ML UNIT-DOSE CUP PO PRN (21:42)
[2021-05-07] MEDS ORDERED: NICOTINE 10 MG CARTRIDGE (INHALER) IH PRN (21:42)
[2021-05-07] MEDS ORDERED: ONDANSETRON *ODT* 4 MG TABLET SL PRN (21:42)
[2021-05-07] MEDS ORDERED: MAGNESIUM HYDROX 2400MG/30ML ORAL SUSPENSION 30 ML CUP PO PRN (21:42)
[2021-05-07] MEDS ORDERED: BISMUTH SUBSALICYLATE 524 MG/30 ML PO PRN (21:42)
[2021-05-07] MEDS ORDERED: NALOXONE HCL 0.4 MG/ML VIAL IM PRN (21:42)
[2021-05-07] MEDS ORDERED: NALOXONE (NARCAN) HCL 4 MG/0.1 ML SPRAY NS PRN (21:42)
[2021-05-07] MEDS ORDERED: P-EPHED 60MG/TRIPROLIDI 2.5MG TABLET PO PRN (21:42)
[2021-05-07] MEDS ORDERED: MENTHOL/PHENOL 1 EACH UD MM PRN (21:42)
[2021-05-07] MEDS ORDERED: IBUPROFEN 400 MG TABLET (FP) PO PRN (21:42)
[2021-05-07] MEDS ORDERED: guaiFENesin 200 MG/10 ML 10 ML UNIT-DOSE CUPS PO PRN (21:42)
[2021-05-07 21:55] VITALS: BMI 37.5
[2021-05-07] MEDS: MELATONIN 5 MG TABLETS PO SCH (23:23)
[2021-05-07] MEDS: hydrOXYzine PAMOATE 25 MG CAPSULE (FP) PO PRN (23:23)
[2021-05-07] MEDS: METHOCARBAMOL 500 MG TABLET PO PRN (23:23)
[2021-05-07] MEDS: THIAMINE HCL 100 MG TABLET (FP) PO SCH (23:23)
[2021-05-08] MEDS: NICOTINE 21 MG/24 HOURS TOPICAL PATCH TD SCH (10:45)
[2021-05-08] MEDS: METHOCARBAMOL 500 MG TABLET PO PRN (10:45)
[2021-05-08] MEDS: PRENATAL VITAMINS W/ FOLIC ACID TABLET (FP) PO SCH (10:45)
[2021-05-08] MEDS: hydrOXYzine PAMOATE 25 MG CAPSULE (FP) PO PRN (10:45)
[2021-05-08] MEDS ORDERED: ARIPiprazole 10 MG TABLET PO ONE (14:00)
[2021-05-08] MEDS ORDERED: methaDONE HCL 10 MG TABLET (FOR DETOX USE ONLY) PO ONE (14:00)
[2021-05-08 14:40] LABS: HEMATOCRIT 38.3 % (35.4-49); HEMOGLOBIN 12.6 GM/dL (11.7-16.9); MCH 28.3 pg (25.7-33.7); MEAN CELL VOLUME 85.9 fl (80-96); MEAN PLT VOLUME 8.9 fl (7.5-11.1); PLATELET COUNT 262 10^3/uL (134-434); RBC 4.46 M/mm3 (4.00-5.60); RDW 13.4 % (11.9-15.9); WHITE BLOOD COUNT 8.3 K/mm3 (4.0-10.0)
[2021-05-08 14:49] LABS: BLOOD UREA NITROGEN 17.4 mg/dL (7-18)
[2021-05-08 14:52] LABS: CREATININE 1.1 mg/dL (0.55-1.3)
[2021-05-08 14:54] LABS: BILIRUBIN,TOTAL 0.4 mg/dL (0.2-1); TOT PROT 5.9 g/dl (6.4-8.2)
[2021-05-08] MEDS: MELATONIN 5 MG TABLETS PO SCH (22:21)
[2021-05-08] MEDS: THIAMINE HCL 100 MG TABLET (FP) PO SCH (22:21)
[2021-05-08] MEDS: MIRTAZAPINE 30 MG TABLET PO SCH (22:21)
[2021-05-08] MEDS: DIVALPROEX NA *ER* EXTEND REL 250 MG TABLET.SA PO SCH (22:21)
[2021-05-08] MEDS: cloNIDine HCL 0.1 MG TABLET PO PRN (22:22)
[2021-05-09] MEDS ORDERED: methaDONE HCL 10 MG TABLET (FOR DETOX USE ONLY) ONE (09:23)
[2021-05-09] MEDS: PRENATAL VITAMINS W/ FOLIC ACID TABLET (FP) PO SCH (10:14)
[2021-05-09] MEDS: ARIPiprazole 10 MG TABLET PO SCH (10:14)
[2021-05-09] MEDS: METHOCARBAMOL 500 MG TABLET PO PRN ×2 (10:16→17:30)
[2021-05-09] MEDS: NICOTINE 21 MG/24 HOURS TOPICAL PATCH TD SCH (10:16)
[2021-05-09] MEDS: THIAMINE HCL 100 MG TABLET (FP) PO SCH (22:30)
[2021-05-09] MEDS: MIRTAZAPINE 30 MG TABLET PO SCH (22:30)
[2021-05-09] MEDS: MELATONIN 5 MG TABLETS PO SCH (22:30)
[2021-05-09] MEDS: DIVALPROEX NA *ER* EXTEND REL 250 MG TABLET.SA PO SCH (22:30)
[2021-05-09] MEDS: cloNIDine HCL 0.1 MG TABLET PO PRN (22:32)
[2021-05-10] MEDS ORDERED: methaDONE HCL 10 MG TABLET (FOR DETOX USE ONLY) PO ONE (10:00)
[2021-05-10] MEDS: METHOCARBAMOL 500 MG TABLET PO PRN (10:16)
[2021-05-10] MEDS: PRENATAL VITAMINS W/ FOLIC ACID TABLET (FP) PO SCH (10:16)
[2021-05-10] MEDS: ARIPiprazole 10 MG TABLET PO SCH (10:17)
[2021-05-10] MEDS: NICOTINE 21 MG/24 HOURS TOPICAL PATCH TD SCH (10:17)
[2021-05-10] MEDS: THIAMINE HCL 100 MG TABLET (FP) PO SCH (22:33)
[2021-05-10] MEDS: MIRTAZAPINE 30 MG TABLET PO SCH (22:33)
[2021-05-10] MEDS: DIVALPROEX NA *ER* EXTEND REL 250 MG TABLET.SA PO SCH (22:33)
[2021-05-10] MEDS: MELATONIN 5 MG TABLETS PO SCH (22:34)
[2021-05-10] MEDS: cloNIDine HCL 0.1 MG TABLET PO PRN (22:35)
[2021-05-11] MEDS ORDERED: methaDONE HCL 10 MG TABLET (FOR DETOX USE ONLY) ONE (08:59)
[2021-05-11] MEDS: PRENATAL VITAMINS W/ FOLIC ACID TABLET (FP) PO SCH (10:17)
[2021-05-11] MEDS: ARIPiprazole 10 MG TABLET PO SCH (10:17)
[2021-05-11] MEDS: METHOCARBAMOL 500 MG TABLET PO PRN ×2 (10:17→18:22)
[2021-05-11] MEDS: NICOTINE 21 MG/24 HOURS TOPICAL PATCH TD SCH (10:28)
[2021-05-11] MEDS ORDERED: cloNIDine HCL 0.1 MG TABLET PO PRN (13:50)
[2021-05-11] MEDS: hydrOXYzine PAMOATE 25 MG CAPSULE (FP) PO PRN ×2 (18:22→22:05)
[2021-05-11] MEDS: THIAMINE HCL 100 MG TABLET (FP) PO SCH (22:05)
[2021-05-11] MEDS: DIVALPROEX NA *ER* EXTEND REL 250 MG TABLET.SA PO SCH (22:05)
[2021-05-11] MEDS: MELATONIN 5 MG TABLETS PO SCH (22:05)
[2021-05-11] MEDS: MIRTAZAPINE 30 MG TABLET PO SCH (22:05)
[2021-05-12 09:39] VITALS: BP 152/79; PULSE 103; TEMP 97.3
[2021-05-12] MEDS ORDERED: methaDONE HCL 10 MG TABLET (FOR DETOX USE ONLY) PO ONE (10:00)
== END 2021-05-12 09:53 | disposition home or self-care (01) | DRG 773 ==
LOC: YASAS 20:56 → Y6N 22:27
PROVIDERS: ADMIT Allergy & Immunology; ATTEND Allergy & Immunology
PROC: HZ2ZZZZ Detoxification Services for Substance Abuse Treatment (ICD-10-PCS; principal; 2021-05-07)
DX: F11.23 Opioid dependence with withdrawal (principal); F14.20 Cocaine dependence, uncomplicated; F12.20 Cannabis dependence, uncomplicated; F17.210 Nicotine dependence, cigarettes, uncomplicated; F25.9 Schizoaffective disorder, unspecified; F31.9 Bipolar disorder, unspecified; F19.24 Other psychoactive substance dependence with psychoactive substance-induced mood disorder; F19.280 Other psychoactive substance dependence with psychoactive substance-induced anxiety disorder; J45.20 Mild intermittent asthma, uncomplicated; Z56.0 Unemployment, unspecified; Z59.01 Sheltered homelessness
CPT/HCPCS: 36415; 80053; 85027; 86780; 93005; 93010; C9803; J0735; U0003; U0005